=== PATIENT | female | born 1975 | race Caucasian/White ===

== ENCOUNTER 2022-10-20 11:24 | Outpatient (OUT) | payer OTHER, SELFPAY ==
[2022-10-20 11:53] LABS: Basophils Absolute Auto 0.1 10^3/uL (0.0-0.1); Basophils Percent Auto 1.1 % (0.2-2.0); Eosinophils Absolute Auto 0.2 10^3/uL (0.0-0.7); Eosinophils Percent Auto 3.5 % (0.9-7.0); Hematocrit 37.7 % (36.0-48.0); Hemoglobin 12.4 g/dL (12.0-16.0); Immature Granulocytes Abs Auto 0.01 10^3/uL (0.00-0.03); Immature Granulocytes Pct Auto 0.2 % (0.0-0.5); Lymphocytes Absolute Auto 2.4 10^3/uL (1.2-3.8); Lymphocytes Percent Auto 35.7 % (20.5-60.0); Mean Corpuscular HGB Conc 32.9 g/dL (29.9-35.2); Mean Corpuscular Hemoglobin 29.4 pg (26.7-34.0); Mean Corpuscular Volume 89.3 fL (81.0-99.0); Mean Platelet Volume 10.5 fL (9.5-13.5); Monocytes Absolute Auto 0.6 10^3/uL (0.3-0.8); Monocytes Percent Auto 8.7 % (1.7-12.0); Neutrophils Absolute Auto 3.4 10^3/uL (1.4-6.5); Neutrophils Percent Auto 50.8 % (43.0-75.0); Platelet Count 308 10^3/uL (150-450); Red Blood Count 4.22 10^6/uL (4.20-5.40); Red Cell Distribution Width 12.6 % (11.0-15.0); White Blood Count 6.6 10^3/uL (4.0-11.0)
[2022-10-20 12:05] LABS: Estimated Average Glucose 100 mg/dL; Glycohemoglobin A1C 5.1 % (4.5-6.2)
[2022-10-20 12:40] LABS: Alanine Aminotransferase 18 U/L (14-59); Albumin Globulin Ratio 1.4; Albumin Level 4.1 g/dL (3.4-5.0); Alkaline Phosphatase 44 U/L (46-116); Anion Gap 8.2; Aspartate Amino Transferase 12 U/L (15-37); BUN Creatinine Ratio 12.9; Bilirubin Direct 0.1 mg/dL (0.0-0.2); Bilirubin Total 0.3 mg/dL (0.2-1.0); Carbon Dioxide 27.3 mmol/L (21.0-32.0); Chloride 99 mmol/L (98-107); Chol HDL Ratio 2.8; Cholesterol 193 mg/dL (<=200); Estimated GFR (African America >60 (>=60); Estimated GFR (Non-African Ame >60 (>=60); Glucose 82 mg/dL (74-106); HDL Cholesterol 70 mg/dL (40-60); Potassium 3.5 mmol/L (3.5-5.1); Sodium 131 mmol/L (136-145); Thyroid Stimulating Hormone 1.681 uIU/mL (0.358-3.740); Total Protein 7.1 g/dL (6.4-8.2); Triglycerides 63 mg/dL (<=150); VLDL CHOLESTEROL 12.6 mg/dL
== END 2022-10-20 11:25 | disposition home or self-care (01) ==
LOC: LAB 11:26
PROVIDERS: PCP Family Medicine; Visit Provider Family Medicine
DX: Z00.00 Encounter for general adult medical examination without abnormal findings (principal)
CPT/HCPCS: 36415; 80048; 80061; 80076; 83036; 84443; 85025

== ENCOUNTER 2023-11-18 17:01 | Emergency (ER) | payer OTHER, SELFPAY ==
[2023-11-18 17:05] VITALS: BP 137/104; PULSE 100; TEMP 36.8; O2SAT 98; BMI 22.4
[2023-11-18] MEDS: OXYCODONE HCL/ACETAMINOPHEN 5MG/325MG 1 TAB PO (17:32)
[2023-11-18] MEDS: IBUPROFEN 600 MG TABLET PO (17:32)
--- NOTE | 2023-11-18 17:51 | XR_ITS ---
The [address] [address] Patient Name: FREDI MONAE MRN: [id number] date: 1975 Sex: F Assigned Patient Location: ED.MAIN Current Patient Location: Accession/Order Number: [id number] Exam Date: 11/18/2023 17:44 Report Date: 11/18/2023 19:06 At the request of: ALONSO YAP Procedure: XR finger RT min 2V EXAM: PLAIN FILM OF FINGER RIGHT HISTORY: Trauma TECHNIQUE: 3 views of the right finger fifth digit are submitted for review. COMPARISON: None. FINDINGS: There is a fracture of the distal tuft of the distal phalanx of the fifth digit right hand. Bone mineralization is within normal limits. Joint spaces are maintained. Tissues are diffusely edematous. There appears to be a laceration of the soft tissues. There is no radiopaque foreign body. XR/XR finger RT min 2V IMPRESSION: Displaced fracture of the distal tuft of the distal phalanx of the fifth digit right hand. Electronically authenticated by: AMANDA ANNA Date: 11/18/2023 19:06
[2023-11-18] MEDS: BUPIVACAINE HCL 0.25% PF 25 MG/10 ML VIAL INJ (18:21)
[2023-11-18] MEDS: CEPHALEXIN 500 MG CAPSULE PO (18:38)
[2023-11-18] MEDS: BACITRACIN 0.9 GM PACKET 1 PACKET TOPICAL (18:53)
--- NOTE | 2023-11-18 19:22 | ED.WOUNDLAC1 ---
HPI - Wound/Laceration General Chief Complaint: Wound/Laceration Stated Complaint: Upper Extremity Injury Time Seen by Provider: 11/18/23 17:05 Source: patient and family Mode of arrival: walk-in Limitations: no limitations History of Present Illness HPI narrative: 48-year-old female presents to the emergency department with children with complaint of injury to her right little finger. Patient states she accidentally got her finger crushed in between slants of a garage door. Wound noted. Notes some numbness to the tip of her finger. Range of motion somewhat reduced due to the pain. Patient is right-handed. Tetanus up-to-date. Quality:?Pressure, penetrating injury Severity:?Moderate Timing:?Injury occurred shortly prior to arrival, constant Context: Normal setting and activity? Modifying factors:?Pain worse with palpation, movement Associated symptoms: Swelling, bruising Related Data Previous Rx's ?Medication ?Instructions ?Recorded cephalexin 500 mg tablet 500 mg PO Q6H 3 days #12 tabs 11/18/23 ibuprofen 600 mg tablet 600 mg PO Q8H PRN pain #20 tabs 11/18/23 oxycodone-acetaminophen 5 mg-325 1 tab PO Q8H PRN pain 3 days #8 11/18/23 mg tablet (Percocet) tabs Allergies Allergy/AdvReac Type Severity Reaction Status Date / Time No Known Drug Allergies Allergy Verified 11/18/23 17:08 Review of Systems ROS Constitutional Denies: fatigue Musculoskeletal Reports: extremity pain, extremity swelling, joint pain and limited range of motion Integumentary/Breast Reports: skin pain, skin tenderness, changes in skin color, nail changes and other (wound) Neurological Reports: numbness in extremities (finger tip); Denies: weakness in extremities Endocrine Denies: fatigue Exam Constitutional Vital Signs, click to edit/add: Last Vital Signs Temp 98.2 F 11/18/23 17:05 Pulse 100 H 11/18/23 17:05 Resp 22 H 11/18/23 17:05 BP 137/104 H 11/18/23 17:05 Pulse Ox 98 11/18/23 17:05 O2 Del Method Room Air 11/18/23 17:05 Common normals: no apparent distress, oriented x3 and alert General appearance: well developed HENMT Common normals: normocephalic and head/scalp atraumatic Head and scalp: normocephalic and atraumatic Cardio Peripheral pulses: radial pulses present right 2+ Extremity Other: MS: Right little finger: Patient has 2.3 laceration overlying the DIP joint, volar aspect. There is diffuse tenderness, bruising, swelling throughout the finger. There is a subungual hematoma at the base of her nail. Range of motion is reduced at the DP due to the injury. She is able to fully flex the finger at the DIP joint and then fully extend it. She reports some decrease sensation to the tip of the finger Neuro Common normals: oriented x3 Sensorium/orientation: alert Sensory exam: extremities (Crease sensation to the tip of her finger) Motor exam: movement abnormality noted (DIP joint of her right little finger) Psych Common normals: mental status grossly normal, affect normal and speech normal Speech: normal speech Course Reevaluation(s) Reevaluation #1: On reevaluation, patient is pain-free. Wound has been repaired. Discussed with patient and family results, plan, and disposition. Appointment scheduled for Wednesday at 10:[address] Neely. They are agreeable with plan Time: 18:33 Vital Signs Vital signs: Vital Signs Temperature 98.2 F 11/18/23 17:05 Pulse Rate 100 H 11/18/23 17:05 Respiratory Rate 22 H 11/18/23 17:05 Blood Pressure 137/104 H 11/18/23 17:05 Pulse Oximetry 98 11/18/23 17:05 Oxygen Delivery Method Room Air 11/18/23 17:05 Temperature 98.2 F 11/18/23 17:05 Pulse Rate 100 H 11/18/23 17:05 Respiratory Rate 22 H 11/18/23 17:05 Blood Pressure 137/104 H 11/18/23 17:05 Pulse Oximetry 98 11/18/23 17:05 Oxygen Delivery Method Room Air 11/18/23 17:05 MDM - Wound/Laceration MDM Narrative Medical decision making narrative: This is a pleasant 48-year-old female who presents to the emergency department with complaint of injuring her right little finger when she crushed it in between slats of a garage door. On arrival, afebrile, vital signs are stable. Exam, nontoxic, uncomfortable appearing patient. She has discoloration, swelling, laceration to the right fifth digit. Range of motion is somewhat limited due to pain and swelling at the DIP joint. She is able to completely flex and extend the finger at her wits. PIP joint. Pharmacy. There is some decrease sensation to the tip of the finger and diffuse bruising is noted. She also has subungual hematoma X-ray imaging obtained which Radiology report reveals distal tuft fracture Finger anesthetized using digital block Wound repaired as noted in procedure note above She was given prophylactic antibiotics due to open fracture Visualization of flexor tendon made. No disruption noted during passive range of motion. Consider tuft fracture injury inhibiting her ability to flex at DIP Bulky dressing, splint applied. Appointment made for patient on Wednesday at 1015 with orthopedics History and record review Discussion with independent historian: Patient's children Additional records reviewed: [facility] reviewed. Patient states her tetanus is up-to-date Favor open distal tuft fracture right little finger, laceration right little finger, subungual hematoma, crush injury Dislocation less likely based on imaging Independent interpretation Imaging: Right little finger: Distal, disrupted fracture of the right little finger Reevaluation: See ED course above Disposition ? The patient was discharged. Plan: Patient will be discharged to home. Condition at time of disposition: stable She was given prescription for prophylactic Keflex, Motrin, limited supply of Percocet Advised to follow up with primary provider. Advised to return for any worsening and/or development of new, concerning signs or symptoms PLEASE NOTE: Portions of the medical record may have been produced using electronic wire spring relay adjuster and may contain errors with respect to translation of words which may not have been identified prior to finalization of the chart. Imaging Data right little finger: Radiologist's impression: ITS Impressions Finger X-Ray 11/18/23 17:51 IMPRESSION: Displaced fracture of the distal tuft of the distal phalanx of the fifth digit right hand. Electronically authenticated by: AMANDA ANNA Date: 11/18/2023 19:06 Discharge Plan Discharge Stand Alone Forms: Work/School Release Chief Complaint: Wound/Laceration Clinical Impression: Subungual hematoma Crush injury to finger Qualifiers: Encounter type: initial encounter Qualified Code(s): S67.10XA - Crushing injury of unspecified finger(s), initial encounter Laceration of right little finger Qualifiers: Encounter type: initial encounter Damage to nail status: with damage Foreign body presence: without foreign body Qualified Code(s): S61.316A - Laceration without foreign body of right little finger with damage to nail, initial encounter Open finger fracture Qualifiers: Encounter type: initial encounter Finger: little finger Phalanx: distal Fracture alignment: displaced Laterality: right Qualified Code(s): S62.636B - Displaced fracture of distal phalanx of right little finger, initial encounter for open fracture Patient Disposition: Home, Self-Care Time of Disposition Decision: 18:33 Condition: Good Mode of Transportation: Private Vehicle Prescriptions / Home Meds: New cephalexin 500 mg tablet 500 mg PO Q6H 3 Days Qty: 12 0RF oxycodone-acetaminophen [Percocet] 5-325 mg tablet 1 tab PO Q8H PRN (Reason: pain) 3 Days Qty: 8 0RF ibuprofen 600 mg tablet 600 mg PO Q8H PRN (Reason: pain) Qty: 20 0RF Print Language: Luxembourgish Instructions: Finger Fracture (ED), Crush Injury (ED) Additional Instructions: Laceration, Sutures ? You have been treated for a laceration (cut). ? Follow up with your doctor OR come back here OR go to the nearest Emergency Department to have your sutures (stitches) taken out. Sutures should be taken out in: 7-10 days. ? Use the following wound care instructions: Keep the wound clean and dry for the next 24 hours. You can wash the wound gently with soap and water. DO NOT allow your wound to soak in water (don?t do the dishes or go swimming, for example). You can shower, but do not rub your stitches too hard. Let the wound dry before putting another bandage on. Take off old dressings every day. Then put on a clean, dry dressing. If the bandage sticks to the wound, slightly moisten it with water. This way, it can come off more easily. You can wash the wound gently with soap and water. To help remove a scab, cleanse the area with a mixture of half hydrogen peroxide and half water. This will also help us to take out the sutures later. Allow the area to dry completely before putting on a new bandage. Unless you receive instructions not to do so, you can place a thin layer of antibiotic ointment over the wound. You can buy Polysporin?, Bacitracin?, or Neosporin? at the store. Neosporin? can sometimes cause irritation to your skin. If this happens, stop using it and switch to another topical (surface) antibiotic. If needed, put a clean, dry bandage over the wound to protect it. ? Keep the affected area elevated (lifted) for the next 24 hours. This will decrease swelling and pain. You may also want to put ice on the area. By applying ice to the affected area, swelling and pain can be reduced. Place some ice cubes in a re-sealable (Ziploc?) bag and add some water. Put a thin washcloth between the bag and the skin. Apply the ice bag to the area for at least 20 minutes. Do this at least 4 times per day. It is OK to use the ice more frequently and for longer periods of time. DO NOT APPLY ICE DIRECTLY TO THE SKIN! ? If you had a local anesthetic, it will wear off in about 2 hours. Until then, be careful not to hurt yourself because of having less feeling in the area. ? YOU SHOULD SEEK MEDICAL ATTENTION IMMEDIATELY, EITHER HERE OR AT THE NEAREST EMERGENCY DEPARTMENT, IF ANY OF THE FOLLOWING OCCURS: You see redness or swelling. There are red streaks going up from the injured area. The wound smells bad or has a lot of drainage. You have fever (temperature higher than 100.4?F / 38?C), chills, worse pain and / or swelling. ? ?BE SURE TO: Call the Doctor today (or tomorrow AM) for appointment. Call us or return for any questions\problems. Return to Emergency at anytime if you are worse. Have your prescription(s) filled right now. WOUND CARE: Have your sutures removed in 7-10 days. Keep wound clean, dry, and covered. Use peroxide once a day to help remove build up. Vitamin A&D ointment or Vitamin E lotion after sutures are removed.? Massage in. Referrals: Faustino Neely MD [Physician] - 11/22/23 10:15 am Discharge Date/Time: 11/18/23 19:02 Procedures ED Laceration Laceration Laceration 1: Site: hand (right little finger) Side (if applicable): right Size (cm): 2.3 Description: linear Depth: simple, single layer Anesthetic used: bupivacaine Anesthesia technique: nerve block Amount (ml): 4 Pre-repair: wound explored, irrigated extensively and deep structures intact (Flexor tendon was visualized. No disruption was noted with flexion and extension of the digit) Skin layer closed with: other (prolene) Size (cm): 6-0 Number of sutures: 8 Technique: simple, interrupted Additional comments: Saw bungalow hematoma released with trephination using a large gauge needle at the base of her nail
== END 2023-11-18 19:02 | disposition home or self-care (01) ==
PROVIDERS: Emergency Provider Emergency Medicine; PCP Family Medicine
DX: S67.196A Crushing injury of right little finger, initial encounter (principal); S62.636B Displaced fracture of distal phalanx of right little finger, initial encounter for open fracture; S60.151A Contusion of right little finger with damage to nail, initial encounter; W23.0XXA Caught, crushed, jammed, or pinched between moving objects, initial encounter
CPT/HCPCS: 12001; 73140; 99284; J0665

== ENCOUNTER 2023-11-22 12:32 | Outpatient (OUT) | payer OTHER, SELFPAY ==
[2023-11-22 14:04] LABS: Estimated Average Glucose 97 mg/dL
[2023-11-22 14:12] LABS: Basophils Absolute Auto 0.1 10^3/uL (0.0-0.1); Eosinophils Absolute Auto 0.4 10^3/uL (0.0-0.7); Hematocrit 40.6 % (36.0-48.0); Hemoglobin 13.5 g/dL (12.0-16.0); Immature Granulocytes Abs Auto 0.02 10^3/uL (0.00-0.03); Immature Granulocytes Pct Auto 0.3 % (0.0-0.5); Lymphocytes Absolute Auto 2.1 10^3/uL (1.2-3.8); Lymphocytes Percent Auto 26.5 % (20.5-60.0); Mean Corpuscular HGB Conc 33.3 g/dL (29.9-35.2); Mean Corpuscular Volume 93.1 fL (81.0-99.0); Mean Platelet Volume 11.6 fL (9.5-13.5); Monocytes Absolute Auto 0.5 10^3/uL (0.3-0.8); Monocytes Percent Auto 6.3 % (1.7-12.0); Neutrophils Absolute Auto 4.8 10^3/uL (1.4-6.5); Neutrophils Percent Auto 60.9 % (43.0-75.0); Platelet Count 302 10^3/uL (150-450); Red Blood Count 4.36 10^6/uL (4.20-5.40); Red Cell Distribution Width 12.2 % (11.0-15.0); White Blood Count 7.8 10^3/uL (4.0-11.0)
[2023-11-22 14:55] LABS: Alanine Aminotransferase 15 U/L (14-59); Albumin Globulin Ratio 1.4; Alkaline Phosphatase 43 U/L (46-116); Anion Gap 8.2; Aspartate Amino Transferase 10 U/L (15-37); BUN Creatinine Ratio 12.1; Bilirubin Direct 0.1 mg/dL (0.0-0.2); Bilirubin Total 0.3 mg/dL (0.2-1.0); Calcium 9.1 mg/dL (8.5-10.1); Carbon Dioxide 31.6 mmol/L (21.0-32.0); Chloride 101 mmol/L (98-107); Chol HDL Ratio 3.1; Cholesterol 185 mg/dL (<=200); Estimated GFR (African America >60 (>=60); Estimated GFR (Non-African Ame >60 (>=60); Globulin 2.9 g/dL; Glucose 89 mg/dL (74-106); HDL Cholesterol 60 mg/dL (40-60); LDL Cholesterol Calculated 102.8 mg/dL; Potassium 3.8 mmol/L (3.5-5.1); Sodium 137 mmol/L (136-145); TSH W/ REFLEX FT4 0.633 uIU/mL (0.358-3.740); Total Protein 6.9 g/dL (6.4-8.2); Triglycerides 111 mg/dL (<=150); VLDL CHOLESTEROL 22.2 mg/dL
== END 2023-11-22 12:33 | disposition home or self-care (01) ==
LOC: LAB 12:33
PROVIDERS: PCP Family Medicine; Visit Provider Family Medicine
DX: Z00.00 Encounter for general adult medical examination without abnormal findings (principal)
CPT/HCPCS: 36415; 80048; 80061; 80076; 83036; 84443; 85025

== ENCOUNTER 2023-11-29 11:11 | Outpatient (OUT) | payer OTHER, SELFPAY ==
--- NOTE | 2023-11-29 | XR_ITS ---
The [address] [address] Patient Name: FREDI MONAE MRN: [id number] date: 1975 Sex: F Assigned Patient Location: Current Patient Location: Accession/Order Number: [id number] Exam Date: 11/29/2023 11:20 Report Date: 12/01/2023 13:05 At the request of: ANA JASSO Procedure: XR hand RT min 3V PROCEDURE: XR hand RT min 3V COMPARISON: 11/18/2023 HISTORY: RIGHT HAND PAIN FINDINGS: BONES:Complex displaced fracture tuft of the fifth distal phalanx, stable. No significant bone formation or bony bridging SOFT TISSUES:Soft tissue swelling tip of the fifth finger EFFUSION:None visible. OTHER: Negative. XR/XR hand RT min 3V IMPRESSION: Stable complex fracture tuft of the fifth distal phalanx Electronically authenticated by: JUAN MANUEL GILBERT Date: 12/01/2023 13:05
--- OUTSIDE RECORDS SUMMARY | 2023-11-29 11:17 | XMS_ITS | CCD ---
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 throughout, improved since last visit. Darker hairs noted at vertex ASSESSMENT and PLAN: Alopecia areata, totalis, rapid, improving - Improved s/p 6 weeks of prednisone followed by weekly prednisone 60 x 6 weeks. Stop prednisone today - We offered treatment with repeat intralesional triamcinolone injection today, to which the patient was agreeable. The risks, benefits, indications, alternatives, and complications were discussed, and informed consent was obtained. Specifically, the risks of possible permanent atrophy or pigment change and infection were explained and understood. We cleaned the site(s) with alcohol and injected Kenalog 5 mg/mL The patient tolerated the procedure well without complications. - Recommend that the patient consider a trial of at least six months of minoxidil 5% topical solution/foam twice daily. - Continue lidex ointment twice daily Wednesday through Wednesday. The potential adverse effects associated with long-term use of topical corticosteroids, including atrophy, hypopigmentation, striae, and telangiectasia, were reviewed. - Continue OTC vitamin D, 2000 IU daily - Continue iron supplementation, slow Fe daily. Can recheck levels as follow up if needed. - In reserve, contact sensitization vs tofacinib FOLLOW-UP: A return visit was recommended in October with Dr. Barbosa. -- Loy Restrepo MD Referring Provider: SELF [[id number]] Allergies As of Date: 09/12/2018 Noted Allergy Reaction SEASONAL ALLERGIES 06/06/2018 14 - Other: See Comments Comments: rhinitis Date Reviewed: 09/12/2018 Reviewed by: Pattie Arguello Ma - Fully Assessed Reason for Visit: Hair Loss [933] Primary Visit Diagnosis:Alopecia areata [L63.9] Order(s):[] triamcinolone acetonide 5 mg injection (KENALOG 10)Disp: Rfl: Prescriptions as of 09/12/2018 Sig: PREDNISONE 20 MG TABLET Take 3 tablets (60 mg) every * TOPIRAMATE 25 MG TABLET Take 25 mg by mouth twice radha* SUMATRIPTAN 100 MG TABLET Take 100 mg by mouth as neede* BUTALBITAL-ACETAMINOP HEN-CAFF* Take 1 tablet by mouth every * IBUPROFEN 800 MG TABLET Take 800 mg by mouth every 6 * FLUOCINONIDE 0.05 % TOPICAL O* Apply to affected area twice * CHOLECALCIFEROL (VITAMIN D3) * Take 1 capsule by mouth once * Patient not taking: Reported on 08/01/2018 PREDNISONE 10 MG TABLET 60mg daily x 7 days, [id number],* Patient not taking: Reported on 08/01/2018 Problem List As Of Date: 09/12/2018 (None) Prescriptions ordered this encounter Disp Refills Start End TRIAMCINOLONE ACETONIDE 10 MG/ML KAMERON* 09/12/2018 09/12/2018 Route: INTRALESIONA Encounter Status:Closed by JHOANA CONNOR RN on 09/12/18 Normal [facility] PROGRESSon 09-12-2018 PROGRESS HNO ID: [id number] Author: Loy Restrepo Service: ? Author Type: Physician Type: Progress Notes Filed: 09/12/2018 4:09 PM Note Text: [facility] Department of Dermatology CHIEF COMPLAINT: No chief complaint on file. HISTORY OF PRESENT ILLNESS: Chloe Cary is a 43 year old female with history of AA who presents for follow-up. She was last seen in our [facility] on 08/01/18. At the last visit, the impression and the plan were: Alopecia areata, totalis, rapid, improving - Improved s/p 6 weeks of prednisone. Recommend continuing a few more weeks of 60 mg weekly until follow up. Side effects reviewed - ILK 5 mg/mL to entire scalp - Recommend starting rogaine 5% - Continue lidex ointment nightly. - Next steps: continue ILK. Decrease prednisone. - Continue OTC vitamin D, 2000 IU daily - Start iron supplementation, slow Fe daily - In reserve, contact sensitization vs tofacinib Today, the patient reports that her hair loss is better. White hair regrowth throughout. Still on prednisone weekly. Plan for ILK today. Still using lidex M-F. On Vitamin D and slow Fe. REVIEW OF SYSTEMS: Fourteen systems were reviewed; pertinent findings are described below. All other systems are negative for the problems addressed today. Integument: No other itching, bleeding, or changing skin lesions currently. ALLERGIES: Allergies As of Date: 09/12/2018 Allergen Noted Reaction SEASONAL ALLERGIES 06/06/2018 Other: See Comments Fully Assessed 08/01/2018 MEDICATIONS: Outpatient Medications Marked as Taking for the 08/01/18 encounter (Office Visit) with Loy Restrepo: topiramate (TOPAMAX) 25 mg tablet Take 25 mg by mouth twice daily. Disp: Rfl: SUMAtriptan (IMITREX) 100 mg tablet Take 100 mg by mouth as needed. Disp: Rfl: ibuprofen (MOTRIN) 800 mg tablet Take 800 mg by mouth every 6 hours as needed. Disp: Rfl: fluocinonide (LIDEX) 0.05 % ointment Apply to affected area twice daily Wednesday-Wednesday. Take weekends off. Disp: 60 g Rfl: 3 RELEVANT PAST MEDICAL HISTORY: No past medical history on file. FAMILY HISTORY: No family history on file. SOCIAL HISTORY: *Above past medical, family and social history reviewed; no changes. PHYSICAL EXAMINATION: Constitutional: Patient is well-appearing and in no acute distress. Pleasant, NAD Skin: Exam of the scalp, face and neck is performed. All areas are normal except for the following findings. - diffuse white fine hairs throughout, improved since last visit. Darker hairs noted at vertex ASSESSMENT and PLAN: Alopecia areata, totalis, rapid, improving - Improved s/p 6 weeks of prednisone followed by weekly prednisone 60 x 6 weeks. Stop prednisone today - We offered treatment with repeat intralesional triamcinolone injection today, to which the patient was agreeable. The risks, benefits, indications, alternatives, and complications were discussed, and informed consent was obtained. Specifically, the risks of possible permanent atrophy or pigment change and infection were explained and understood. We cleaned the site(s) with alcohol and injected Kenalog 5 mg/mL The patient tolerated the procedure well without complications. - Recommend that the patient consider a trial of at least six months of minoxidil 5% topical solution/foam twice daily. - Continue lidex ointment twice daily Wednesday through Wednesday. The potential adverse effects associated with long-term use of topical corticosteroids, including atrophy, hypopigmentation, striae, and telangiectasia, were reviewed. - Continue OTC vitamin D, 2000 IU daily - Continue iron supplementation, slow Fe daily. Can recheck levels as follow up if needed. - In reserve, contact sensitization vs tofacinib FOLLOW-UP: A return visit was recommended in October with Dr. Barbosa. -- Loy Restrepo MD [facility] CNOVon 08-01-2018 CNOV Office Visit (DERMBD ) CHLOE CARY ([id number]) 1975 F Date Time Provider Department 08/01/18 2:00 PM LOY RESTREPO DERMBD During your visit today, we recorded the following information about you: Loy Restrepo MD 08/01/2018 4:36 PM Signed [facility] Department of Dermatology CHIEF COMPLAINT: Patient presents with: Hair Loss HISTORY OF PRESENT ILLNESS: Chloe Cary is a 43 year old female with history of AA who presents for follow-up. She was last seen in our [facility] on 06/06/2018. At the last visit, the impression and the plan were: Alopecia areata, diffuse pattern, worsening - Recommend that the patient consider a trial of at least six months of minoxidil 5% topical solution/foam twice daily. - Prescribed fluocinonide (Lidex) 0.05% ointment for the scalp twice daily two weeks on/two weeks off. - Prescribed prednisone taper as follows: 60 mg daily x 7 days, then 50 mg daily x 7 days, then 40 mg daily x 7 days, then 30 mg daily x 7 days, then 20 mg daily x 7 days, then 10 mg daily x 7 days, and then stop. Blood work demonstrated iron and vitamin D as slightly low. Started slow Fe daily and vitamin D 50,000 IU for 6 weeks. Today, the patient reports that her hair loss is better. Previous therapies for the above problem also include: - ILK - topical steroids - course of oral prednisone REVIEW OF SYSTEMS: Fourteen systems were reviewed; pertinent findings are described below. All other systems are negative for the problems addressed today. Integument: No other itching, bleeding, or changing skin lesions currently. ALLERGIES: Allergies As of Date: 08/01/2018 Allergen Noted Reaction SEASONAL ALLERGIES 06/06/2018 Other: See Comments Fully Assessed 08/01/2018 MEDICATIONS: Outpatient Medications Marked as Taking for the 08/01/18 encounter (Office Visit) with Loy Restrepo: topiramate (TOPAMAX) 25 mg tablet Take 25 mg by mouth twice daily. Disp: Rfl: SUMAtriptan (IMITREX) 100 mg tablet Take 100 mg by mouth as needed. Disp: Rfl: ibuprofen (MOTRIN) 800 mg tablet Take 800 mg by mouth every 6 hours as needed. Disp: Rfl: fluocinonide (LIDEX) 0.05 % ointment Apply to affected area twice daily Wednesday-Wednesday. Take weekends off. Disp: 60 g Rfl: 3 RELEVANT PAST MEDICAL HISTORY: No past medical history on file. FAMILY HISTORY: No family history on file. SOCIAL HISTORY: *Above past medical, family and social history reviewed; no changes. PHYSICAL EXAMINATION: Constitutional: Patient is well-appearing and in no acute distress. Conjunctivae and eyelids: Normal, except as noted below. Lips: Normal, except as noted below. Skin: Exam of the scalp, face and neck is performed. All areas are normal except for the following findings. - diffuse white fine hairs throughout. Patches of darker hairs in the vertex and occipital scalp, improved ASSESSMENT and PLAN: Alopecia areata, totalis, rapid, improving - Improved s/p 6 weeks of prednisone. Recommend continuing a few more weeks of 60 mg weekly until follow up. Side effects reviewed - We offered treatment with intralesional triamcinolone injection today, to which the patient was agreeable. The risks, benefits, indications, alternatives, and complications were discussed, and informed consent was obtained. Specifically, the risks of possible permanent atrophy or pigment change and infection were explained and understood. We cleaned the site(s) with alcohol and injected Kenalog 5 mg/mL The patient tolerated the procedure well without complications. - Recommend that the patient consider a trial of at least six months of minoxidil 5% topical solution/foam twice daily. We discussed that she may initially notice hair loss with initiation of this medication. We also recommended that she taper the medication should she choose to discontinue it. - Continue lidex ointment nightly. The potential adverse effects associated with long-term use of topical corticosteroids, including atrophy, hypopigmentation, striae, and telangiectasia, were reviewed. - Next steps: continue ILK. Decrease prednisone. - Continue OTC vitamin D, 2000 IU daily - Start iron supplementation, slow Fe daily - In reserve, contact sensitization vs tofacinib FOLLOW-UP: A return visit was recommended in August. COMPLIANCE DOCUMENTATION: - Medication Reconciliation: An updated list was offered to the patient. This list is available in the electronic medical record. -- MD Loy Chaney MD 08/01/2018 2:34 PM Signed Plan: - slow Fe daily - vitamin D 2,000 IU daily - continue lidex ointment once daily - restart prednisone 60 mg weekly, Mondays. - injections today F/u in August - with me. Then f/u in October with Dr. Barbosa Referring Provider: SELF [200] Allergies As of Date: 08/01/2018 Noted Allergy Reaction SEASONAL ALLERGIES 06/06/2018 14 - Other: See Comments Comments: rhinitis Date Reviewed: 08/01/2018 Reviewed by: Pattie Arguello Ma - Fully Assessed Reason for Visit: Hair Loss [933] Primary Visit Diagnosis:Alopecia areata [L63.9] Order(s):[] triamcinolone acetonide 5 mg injection (KENALOG 10)Disp: Rfl: predniSONE (DELTASONE) 20 mg tabletTake 3 tablets (60 mg) every Wednesday.Disp: 12 tabletRfl: 2 Prescriptions as of 08/01/2018 Sig: TOPIRAMATE 25 MG TABLET Take 25 mg by mouth twice radha* SUMATRIPTAN 100 MG TABLET Take 100 mg by mouth as neede* IBUPROFEN 800 MG TABLET Take 800 mg by mouth every 6 * FLUOCINONIDE 0.05 % TOPICAL O* Apply to affected area twice * PREDNISONE 20 MG TABLET Take 3 tablets (60 mg) every * CHOLECALCIFEROL (VITAMIN D3) * Take 1 capsule by mouth once * Patient not taking: Reported on 08/01/2018 BUTALBITAL-ACETAMINOP HEN-CAFF* Take 1 tablet by mouth every * PREDNISONE 10 MG TABLET 60mg daily x 7 days, [id number],* Patient not taking: Reported on 08/01/2018 Problem List As Of Date: 08/01/2018 (None) Other instructions from your clinician: Plan: - slow Fe daily - vitamin D 2,000 IU daily - continue lidex ointment once daily - restart prednisone 60 mg weekly, Mondays. - injections today F/u in August - with mn. Then f/u in October with Dr. Barbosa Prescriptions ordered this encounter Disp Refills Start End TRIAMCINOLONE ACETONIDE 10 MG/ML KAMERON* 08/01/2018 08/01/2018 Route: INTRALESIONA PREDNISONE 20 MG TABLET 12 t* 2 08/01/2018 Sig: Take 3 tablets (60 mg) every Wednesday. Encounter Status:Closed by LOY RESTREPO on 08/01/18 Normal [facility] PROGRESSon 08-01-2018 PROGRESS HNO ID: [id number] Author: Loy Restrepo Service: ? Author Type: Physician Type: Progress Notes Filed: 08/01/2018 4:36 PM Note Text: [facility] Department of Dermatology CHIEF COMPLAINT: Patient presents with: Hair Loss HISTORY OF PRESENT ILLNESS: Chloe Cary is a 43 year old female with history of AA who presents for follow-up. She was last seen in our [facility] on 06/06/2018. At the last visit, the impression and the plan were: Alopecia areata, diffuse pattern, worsening - Recommend that the patient consider a trial of at least six months of minoxidil 5% topical solution/foam twice daily. - Prescribed fluocinonide (Lidex) 0.05% ointment for the scalp twice daily two weeks on/two weeks off. - Prescribed prednisone taper as follows: 60 mg daily x 7 days, then 50 mg daily x 7 days, then 40 mg daily x 7 days, then 30 mg daily x 7 days, then 20 mg daily x 7 days, then 10 mg daily x 7 days, and then stop. Blood work demonstrated iron and vitamin D as slightly low. Started slow Fe daily and vitamin D 50,000 IU for 6 weeks. Today, the patient reports that her hair loss is better. Previous therapies for the above problem also include: - ILK - topical steroids - course of oral prednisone REVIEW OF SYSTEMS: Fourteen systems were reviewed; pertinent findings are described below. All other systems are negative for the problems addressed today. Integument: No other itching, bleeding, or changing skin lesions currently. ALLERGIES: Allergies As of Date: 08/01/2018 Allergen Noted Reaction SEASONAL ALLERGIES 06/06/2018 Other: See Comments Fully Assessed 08/01/2018 MEDICATIONS: Outpatient Medications Marked as Taking for the 08/01/18 encounter (Office Visit) with Loy Restrepo: topiramate (TOPAMAX) 25 mg tablet Take 25 mg by mouth twice daily. Disp: Rfl: SUMAtriptan (IMITREX) 100 mg tablet Take 100 mg by mouth as needed. Disp: Rfl: ibuprofen (MOTRIN) 800 mg tablet Take 800 mg by mouth every 6 hours as needed. Disp: Rfl: fluocinonide (LIDEX) 0.05 % ointment Apply to affected area twice daily Wednesday-Wednesday. Take weekends off. Disp: 60 g Rfl: 3 RELEVANT PAST MEDICAL HISTORY: No past medical history on file. FAMILY HISTORY: No family history on file. SOCIAL HISTORY: *Above past medical, family and social history reviewed; no changes. PHYSICAL EXAMINATION: Constitutional: Patient is well-appearing and in no acute distress. Conjunctivae and eyelids: Normal, except as noted below. Lips: Normal, except as noted below. Skin: Exam of the scalp, face and neck is performed. All areas are normal except for the following findings. - diffuse white fine hairs throughout. Patches of darker hairs in the vertex and occipital scalp, improved ASSESSMENT and PLAN: Alopecia areata, totalis, rapid, improving - Improved s/p 6 weeks of prednisone. Recommend continuing a few more weeks of 60 mg weekly until follow up. Side effects reviewed - We offered treatment with intralesional triamcinolone injection today, to which the patient was agreeable. The risks, benefits, indications, alternatives, and complications were discussed, and informed consent was obtained. Specifically, the risks of possible permanent atrophy or pigment change and infection were explained and understood. We cleaned the site(s) with alcohol and injected Kenalog 5 mg/mL The patient tolerated the procedure well without complications. - Recommend that the patient consider a trial of at least six months of minoxidil 5% topical solution/foam twice daily. We discussed that she may initially notice hair loss with initiation of this medication. We also recommended that she taper the medication should she choose to discontinue it. - Continue lidex ointment nightly. The potential adverse effects associated with long-term use of topical corticosteroids, including atrophy, hypopigmentation, striae, and telangiectasia, were reviewed. - Next steps: continue ILK. Decrease prednisone. - Continue OTC vitamin D, 2000 IU daily - Start iron supplementation, slow Fe daily - In reserve, contact sensitization vs tofacinib FOLLOW-UP: A return visit was recommended in August. COMPLIANCE DOCUMENTATION: - Medication Reconciliation: An updated list was offered to the patient. This list is available in the electronic medical record. -- Loy Restrepo MD Normal [facility] CBC and Differentialon 06-06 Abs Baso 0.10 k/uL Normal <0.11 [facility] Comment on above: Performed By: #### [employer], TSH, CBCDIF, CMP, FERR #### [facility] [address] [place], [place] [address] Abs Osborne 0.57 k/uL Normal <0.87 [facility] Comment on above: Performed By: #### Z INC, TSH, CBCDIF, CMP, FERR #### [facility] [address] [place], [place] [id number] Abs Neut 3.79 k/uL Normal 1.45-7.50 [facility] Comment on above: Performed By: #### [employer], TSH, CBCDIF, CMP, FERR #### [facility] [address] [place], [place] [address] Absolute nRBC <0.01 Normal <0.01 [facility] Comment on above: Performed By: #### [employer], TSH, CBCDIF, CMP, FERR #### [facility] [address] [place] [address] Basophils/100 WBC (Bld) 1.4 % Normal [facility] Comment on above: Performed By: #### [employer], TSH, CBCDIF, CMP, FERR #### [facility] [address] [place] [address] DTYPE Auto Diff Normal [facility] Comment on above: Performed By: #### [employer], TSH, CBCDIF, CMP, FERR #### [facility] [address] [place] [address] Eosinophils (Bld) [#/Vol] 0.24 10*3/uL Normal <0.46 [facility] Comment on above: Performed By: #### [employer], TSH, CBCDIF, CMP, FERR #### [facility] [address] [place] [address] Eosinophils/100 WBC (Bld) 3.4 % Normal [facility] Comment on above: Performed By: #### [employer], TSH, CBCDIF, CMP, FERR #### [facility] [address] [place] [address] Erythrocyte distribution width (RBC) [Ratio] 12.9 % Normal 11.5-15.0 [facility] Comment on above: Performed By: #### [employer], TSH, CBCDIF, CMP, FERR #### [facility] [address] [place] [address] Hematocrit (Bld) [Volume fraction] 44.5 % Normal 36.0-46.0 [facility] Comment on above: Performed By: #### [employer], TSH, CBCDIF, CMP, FERR #### [facility] [address] [place] [address] Hemoglobin (Bld) [Mass/Vol] 13.9 g/dL Normal 11.5-15.5 [facility] Comment on above: Performed By: #### [employer], TSH, CBCDIF, CMP, FERR #### [place] [address] [place], [place] [address] Lymphocytes (Bld) [#/Vol] 2.36 10*3/uL Normal 1.00-4.00 [facility] Comment on above: Performed By: #### Z [employer], TSH, CBCDIF, CMP, FERR #### [place] [address] [place], [place] [address] Lymphocytes/100 WBC (Bld) 33.3 % Normal [facility] Comment on above: Performed By: #### [employer], TSH, CBCDIF, CMP, FERR #### [address] [address] MCH (RBC) [Entitic mass] 29.4 pG Normal 26.0-34.0 [facility] Comment on above: Performed By: #### [employer], TSH, CBCDIF, CMP, FERR #### [address] [address] MCHC (RBC) [Mass/Vol] 31.2 g/dL Normal 30.5-36.0 [facility] Comment on above: Performed By: #### [employer], TSH, CBCDIF, CMP, FERR #### [place] [place], [place] [address] MCV (RBC) [Entitic vol] 94.1 fL Normal 80.0-100.0 [facility] Comment on above: Performed By: #### Z [employer], TSH, CBCDIF, CMP, FERR #### [place] [address] [place], [place] [address] Monocytes/100 WBC (Bld) 8.1 % Normal [facility] Comment on above: Performed By: #### Z INC, TSH, CBCDIF, CMP, FERR #### [place] [id number] [place] [address] Neutrophils/100 WBC (Bld) 53.8 % Normal [facility] Comment on above: Performed By: #### [employer], TSH, CBCDIF, CMP, FERR #### [place] [address] [place] [address] NRBCs 0.0 /100 WBC Normal 0 [facility] Comment on above: Performed By: #### [employer], TSH, CBCDIF, CMP, FERR #### [place] [id number] [place] [address] Platelet mean volume (Bld) [Entitic vol] 11.5 fL Normal 9.0-12.7 [facility] Comment on above: Performed By: #### [employer], TSH, CBCDIF, CMP, FERR #### [place] [address] Platelets (Bld) [#/Vol] 306 10*3/uL Normal 150-400 [facility] Comment on above: Performed By: #### [employer], TSH, CBCDIF, CMP, FERR #### [place] [address] RBC (Bld) [#/Vol] 4.73 10*6/uL Normal 3.90-5.20 [facility] Comment on above: Performed By: #### [employer], TSH, CBCDIF, CMP, FERR #### [place] [address] WBC (Bld) [#/Vol] 7.08 10*3/uL Normal 3.70-11.00 [facility] Comment on above: Performed By: #### [employer], TSH, CBCDIF, CMP, FERR #### [place] [address] [place] [address] CNOVon 06-06-2018 CNOV Office Visit (DERMBD ) CHLOE CARY ([id number]) 1975 F Date Time Provider Department 06/06/18 9:20 AM LOY RESTREPO During your visit today, we recorded the following information about you: Loy Restrepo MD 06/06/2018 12:50 PM Signed [facility] Department of Dermatology We had the pleasure of seeing your patient. Please see below for our findings, including our assessment and plan near the end of this letter. We hope you find our recommendations helpful. We appreciate the opportunity to consult on the care of your patient. CHIEF COMPLAINT: Patient presents with: Hair Loss HISTORY OF PRESENT ILLNESS: Chloe Cary is a 43 year old female with history of AA who presents for initial evaluation of diffuse hair loss detailed below. Location: scalp Duration: November, flaring most in April Associated symptoms: no itching Modifying factors: previous tx with ILK with improvement. She did leave her boyfriend in November which was a stressor. She did lose about 25 lbs in the last few months due to stress. She was on antidepressants in the past but no longer. Topamax was started about 1.5 years ago - only new medication. No family hx of alopecia. Never started on topical agents. No additional issues today The patient?s personal history of skin cancer is negative. There is not a family history of melanoma. REVIEW OF SYSTEMS: Fourteen systems were reviewed; pertinent findings are described below. All other systems are negative for the problems addressed today. Integument: No other itching, bleeding, or changing skin lesions currently. ALLERGIES: Allergies As of Date: 06/06/2018 Allergen Noted Reaction SEASONAL ALLERGIES 06/06/2018 Other: See Comments reviewed none MEDICATIONS: Outpatient Medications Marked as Taking for the 06/06/18 encounter (Office Visit) with Loy Restrepo: topiramate (TOPAMAX) 25 mg tablet Take 25 mg by mouth twice daily. Disp: Rfl: SUMAtriptan (IMITREX) 100 mg tablet Take 100 mg by mouth as needed. Disp: Rfl: acetaminophen 325 mg-caffeine 40 mg-butalbital 50 mg (FIORICET) per tablet Take 1 tablet by mouth every 4 hours as needed. Disp: Rfl: ibuprofen (MOTRIN) 800 mg tablet Take 800 mg by mouth every 6 hours as needed. Disp: Rfl: RELEVANT PAST MEDICAL HISTORY: No past medical history on file. FAMILY HISTORY: No family history on file. SOCIAL HISTORY: *Above past medical, family and social history reviewed; no changes. PHYSICAL EXAMINATION: Constitutional: Patient is well-appearing and in no acute distress. Conjunctivae and eyelids: Normal, except as noted below. Lips: Normal, except as noted below. Skin: Exam of the face, scalp and hands is performed. All areas are normal except for the following findings. - wig in place, removed for exam - diffuse significant thinning of the scalp. Few thin hairs presents throughout - normal density eyelashes and eyebrows ASSESSMENT and PLAN: Alopecia areata, diffuse pattern, worsening - We discussed the diagnosis, pathogenesis, and expected clinical course of alopecia areata and its variants, including the chronic and waxing/waning nature of this condition. We reviewed reviewed that alopecia areata and its variants are autoimmune diseases and have an unpredictable course. - We reviewed that alopecia areata may be associated with other autoimmune conditions (most commonly thyroid disease) in some patients and families. Labs today - Recommend that the patient consider a trial of at least six months of minoxidil 5% topical solution/foam twice daily. We discussed that she may initially notice hair loss with initiation of this medication. We also recommended that she taper the medication should she choose to discontinue it. - Prescribed fluocinonide (Lidex) 0.05% ointment for the scalp twice daily two weeks on/two weeks off. - The potential adverse effects associated with long-term use of topical corticosteroids, including atrophy, hypopigmentation, striae, and telangiectasia, were reviewed. - Prescribed prednisone taper as follows: 60 mg daily x 7 days, then 50 mg daily x 7 days, then 40 mg daily x 7 days, then 30 mg daily x 7 days, then 20 mg daily x 7 days, then 10 mg daily x 7 days, and then stop. Side effects of prednisone, including hypertension, skin atrophy and impaired wound healing, peripheral edema, nausea/vomiting, increased risk of gastric ulcerations and GI bleeding, increased risk of infection, hyperglycemia and risk of adrenal insufficiency with tapering, cataracts, glaucoma, insomnia, depression, anxiety, osteopenia/osteoporos is and risk of osteonecrosis of the hip, were reviewed with the patient. FOLLOW-UP: A return visit was recommended in 8 weeks. COMPLIANCE DOCUMENTATION: - Medication Reconciliation: An updated list was offered to the patient. This list is available in the electronic medical record. 30 minutes total visit spent face to face with patient. Greater than 50% of the time was spent on counseling and coordination of care, discussing treatment options and recommendations. -- Loy Restrepo MD Referring Provider: SELF [[id number]] Allergies As of Date: 06/06/2018 Noted Allergy Reaction SEASONAL ALLERGIES 06/06/2018 14 - Other: See Comments Comments: rhinitis Date Reviewed: Never Reviewed Reason for Visit: Hair Loss [933] Primary Visit Diagnosis:Alopecia areata [L63.9] Order(s):fluocinonide (LIDEX) 0.05 % ointmentApply to affected area twice daily Wednesday-Wednesday. Take weekends off.Disp: 60 gRfl: 3 CBC + DIFF [SQCBCDIF] Order #: [id number] FUTURE COMP METABOLIC PANEL [SQCMP] Order #: [id number] FUTURE TSH BLD [SQTSH] Order #: [id number] FUTURE VITAMIN D 25 HYDROXY [SQVITD] Order #: [id number]. #:[id number] FERRITIN BLD [SQFERR] Order #: [id number] FUTURE ZINC BLD [SQZINC] Order #: [id number] FUTURE predniSONE (DELTASONE) 10 mg [id number] daily x 7 days, 99ezw4g, 26oga3n, 30clp9k, 35hdt9t, 84gru6n, then stopDisp: 147 tabletRfl: 0 Prescriptions as of 06/06/2018 Sig: TOPIRAMATE 25 MG TABLET Take 25 mg by mouth twice radha* SUMATRIPTAN 100 MG TABLET Take 100 mg by mouth as neede* BUTALBITAL-ACETAMINOP HEN-CAFF* Take 1 tablet by mouth every * IBUPROFEN 800 MG TABLET Take 800 mg by mouth every 6 * FLUOCINONIDE 0.05 % TOPICAL O* Apply to affected area twice * PREDNISONE 10 MG TABLET 60mg daily x 7 days, 78psz6a,* Problem List As Of Date: 06/06/2018 (None) Prescriptions ordered this encounter Disp Refills Start End FLUOCINONIDE 0.05 % TOPICAL OINTMENT 60 g 3 06/06/2018 Sig: Apply to affected area twice daily Wednesday-Wednesday. Take weekends off. PREDNISONE 10 MG TABLET 147 * 0 06/06/2018 Simg daily x 7 days, 97uuf4m, 84lvy1c, 70eml4w, 13ebf8h, 25wrz3b, then stop Encounter Status:Closed by LOY RESTREPO on 06/06/18 Normal [facility] Comp Metabolic Panelon 06-06 Albumin [Mass/Vol] 4.8 g/dL Normal 3.9-4.9 [facility] Comment on above: Performed By: #### Z INC, TSH, CBCDIF, CMP, FERR #### [place] [address] [place] [address] ALP [Catalytic activity/Vol] 44 U/L Normal 34-123 [facility] Comment on above: Performed By: #### [employer], TSH, CBCDIF, CMP, FERR #### [facility] [address] [place] [address] ALT [Catalytic activity/Vol] 8 U/L Normal 7-38 [facility] Comment on above: Performed By: #### [employer], TSH, CBCDIF, CMP, FERR #### [facility] [address] [place], [place] [address] Anion gap [Moles/Vol] 9 mmol/L Normal 9-18 [facility] Comment on above: Performed By: #### [employer], TSH, CBCDIF, CMP, FERR #### [facility] [employer] [address] [place] [address] AST [Catalytic activity/Vol] 18 U/L Normal 13-35 [facility] Comment on above: Performed By: #### [employer], TSH, CBCDIF, CMP, FERR #### [facility] [employer] [address] [place], [place] [address] Bilirubin [Mass/Vol] 0.2 mg/dL Normal 0.2-1.3 [facility] Comment on above: Performed By: #### [employer] INC, TSH, CBCDIF, CMP, FERR #### [facility] [address] [place] [address] Calcium [Mass/Vol] 9.5 mg/dL Normal 8.5-10.2 [facility] Comment on above: Performed By: #### [employer], TSH, CBCDIF, CMP, FERR #### [place] [address] [place] [address] Chloride [Moles/Vol] 104 mmol/L Normal 97-105 [facility] Comment on above: Performed By: #### [employer], TSH, CBCDIF, CMP, FERR #### [place] [address] CO2 [Moles/Vol] 26 mmol/L Normal 22-30 [facility] Comment on above: Performed By: #### [employer], TSH, CBCDIF, CMP, FERR #### [place] [address] [place] [address] Creatinine [Mass/Vol] 0.75 mg/dL Normal 0.58-0.96 [facility] Comment on above: Performed By: #### Z [employer], TSH, CBCDIF, CMP, FERR #### [facility] [address] [place] [address] eGFR- Amer. >60 Normal [facility] Comment on above: Performed By: #### [employer], TSH, CBCDIF, CMP, FERR #### [place] [address] [place] [address] GFR/1.73 sq M predicted among non-blacks MDRD (S/P/Bld) [Vol rate/Area] mL/min/{1.73_m2} Normal [facility] Comment on above: Result Comment: eGFR (Estimated GFR) Units of measure: mL/min/1.73 meters squared eGFR is derived from the reexpressed MDRD Study equation using the following parameters: serum creatinine, age, gender and race. The creatinine assay has been calibrated to be traceable to IDMS. An eGFR <60 mL/min/1.73m2 for >3 months is consistent with chronic kidney disease. Refer to KDOQI guidelines for clinical interpretation. In patients with unstable renal function, e.g. those with acute kidney injury, the eGFR may not accurately reflect actual GFR. Performed By: #### Z INC, TSH, CBCDIF, CMP, FERR #### [facility] [employer] [address] [place], [place] [address] Glucose [Mass/Vol] 83 mg/dL Normal 74-99 [facility] Comment on above: Result Comment: The [place] Diabetes Association (ADA) provides guidance for cutoff values for fasting glucose and random glucose. The ADA defines fasting as no caloric intake for at least 8 hours. Fasting plasma glucose results between 100 to 125 mg/dL indicate increased risk for diabetes (prediabetes). Fasting plasma glucose results greater than or equal to 126 mg/dL meet the criteria for diagnosis of diabetes. In the absence of unequivocal hyperglycemia, results should be confirmed by repeat testing. In a patient with classic symptoms of hyperglycemia or hyperglycemic crisis, random plasma glucose results greater than or equal to 200 mg/dL meet the criteria for diagnosis of diabetes. Reference: Standards of Medical Care in Diabetes 2016, [place] [employer]. Diabetes Care. 2016.39(Suppl 1). Performed By: #### Z INC, TSH, CBCDIF, CMP, FERR #### [facility] [address] [place], [place] [address] Potassium [Moles/Vol] 4.9 mmol/L Normal 3.7-5.1 [facility] Comment on above: Performed By: #### Z INC, TSH, CBCDIF, CMP, FERR #### [facility] [address] [place], [place] [address] Protein [Mass/Vol] 7.2 g/dL Normal 6.3-8.0 [facility] Comment on above: Performed By: #### Z INC, TSH, CBCDIF, CMP, FERR #### [facility] [address] [place], [place] [address] Sodium [Moles/Vol] 139 mmol/L Normal 136-144 [facility] Comment on above: Performed By: #### Z INC, TSH, CBCDIF, CMP, FERR #### [facility] [address] [place], [place] [address] Urea nitrogen [Mass/Vol] 11 mg/dL Normal 7-21 [facility] Comment on above: Performed By: #### Z INC, TSH, CBCDIF, CMP, FERR #### [facility] [address] [place] [address] Ferritinon 06-06-2018 Ferritin [Mass/Vol] 25.1 ng/mL Normal 14.7-205.1 [facility] Comment on above: Performed By: #### Z INC, TSH, CBCDIF, CMP, FERR #### [facility] [address] [place] [id number] PROGRESSon 06-06-2018 PROGRESS HNO ID: [id number] Author: Lyo Restrepo Service: ? Author Type: Physician Type: Progress Notes Filed: 06/06/2018 12:50 PM Note Text: [facility] Department of Dermatology We had the pleasure of seeing your patient. Please see below for our findings, including our assessment and plan near the end of this letter. We hope you find our recommendations helpful. We appreciate the opportunity to consult on the care of your patient. CHIEF COMPLAINT: Patient presents with: Hair Loss HISTORY OF PRESENT ILLNESS: Chloe Cary is a 43 year old female with history of AA who presents for initial evaluation of diffuse hair loss detailed below. Location: scalp Duration: November, flaring most in April Associated symptoms: no itching Modifying factors: previous tx with ILK with improvement. She did leave her boyfriend in November which was a stressor. She did lose about 25 lbs in the last few months due to stress. She was on antidepressants in the past but no longer. Topamax was started about 1.5 years ago - only new medication. No family hx of alopecia. Never started on topical agents. No additional issues today The patient?s personal history of skin cancer is negative. There is not a family history of melanoma. REVIEW OF SYSTEMS: Fourteen systems were reviewed; pertinent findings are described below. All other systems are negative for the problems addressed today. Integument: No other itching, bleeding, or changing skin lesions currently. ALLERGIES: Allergies As of Date: 06/06/2018 Allergen Noted Reaction SEASONAL ALLERGIES 06/06/2018 Other: See Comments reviewed none MEDICATIONS: Outpatient Medications Marked as Taking for the 06/06/18 encounter (Office Visit) with Loy Restrepo: topiramate (TOPAMAX) 25 mg tablet Take 25 mg by mouth twice daily. Disp: Rfl: SUMAtriptan (IMITREX) 100 mg tablet Take 100 mg by mouth as needed. Disp: Rfl: acetaminophen 325 mg-caffeine 40 mg-butalbital 50 mg (FIORICET) per tablet Take 1 tablet by mouth every 4 hours as needed. Disp: Rfl: ibuprofen (MOTRIN) 800 mg tablet Take 800 mg by mouth every 6 hours as needed. Disp: Rfl: RELEVANT PAST MEDICAL HISTORY: No past medical history on file. FAMILY HISTORY: No family history on file. SOCIAL HISTORY: *Above past medical, family and social history reviewed; no changes. PHYSICAL EXAMINATION: Constitutional: Patient is well-appearing and in no acute distress. Conjunctivae and eyelids: Normal, except as noted below. Lips: Normal, except as noted below. Skin: Exam of the face, scalp and hands is performed. All areas are normal except for the following findings. - wig in place, removed for exam - diffuse significant thinning of the scalp. Few thin hairs presents throughout - normal density eyelashes and eyebrows ASSESSMENT and PLAN: Alopecia areata, diffuse pattern, worsening - We discussed the diagnosis, pathogenesis, and expected clinical course of alopecia areata and its variants, including the chronic and waxing/waning nature of this condition. We reviewed reviewed that alopecia areata and its variants are autoimmune diseases and have an unpredictable course. - We reviewed that alopecia areata may be associated with other autoimmune conditions (most commonly thyroid disease) in some patients and families. Labs today - Recommend that the patient consider a trial of at least six months of minoxidil 5% topical solution/foam twice daily. We discussed that she may initially notice hair loss with initiation of this medication. We also recommended that she taper the medication should she choose to discontinue it. - Prescribed fluocinonide (Lidex) 0.05% ointment for the scalp twice daily two weeks on/two weeks off. - The potential adverse effects associated with long-term use of topical corticosteroids, including atrophy, hypopigmentation, striae, and telangiectasia, were reviewed. - Prescribed prednisone taper as follows: 60 mg daily x 7 days, then 50 mg daily x 7 days, then 40 mg daily x 7 days, then 30 mg daily x 7 days, then 20 mg daily x 7 days, then 10 mg daily x 7 days, and then stop. Side effects of prednisone, including hypertension, skin atrophy and impaired wound healing, peripheral edema, nausea/vomiting, increased risk of gastric ulcerations and GI bleeding, increased risk of infection, hyperglycemia and risk of adrenal insufficiency with tapering, cataracts, glaucoma, insomnia, depression, anxiety, osteopenia/osteoporos is and risk of osteonecrosis of the hip, were reviewed with the patient. FOLLOW-UP: A return visit was recommended in 8 weeks. COMPLIANCE DOCUMENTATION: - Medication Reconciliation: An updated list was offered to the patient. This list is available in the electronic medical record. 30 minutes total visit spent face to face with patient. Greater than 50% of the time was spent on counseling and coordination of care, discussing treatment options and recommendations. -- Loy Restrepo MD Normal [facility] TSHon 06-06-2018 TSH Qn 2.550 uU/mL Normal 0.400-5.500 [facility] Comment on above: Result Comment: If t he patient is , TSH reference range varies by gestational period: First Trimester 0.100-2.500 uU/mL Second Trimester 0.200-3.000 uU/mL Third Trimester 0.300-3.000 uU/mL References: 1. De Cem L, Brenda M, Jose De Jesus EK, et al. Management of Thyroid Dysfunction during and : An Endocrine Society Clinical Practice Guideline. J Clin Endocrinol Metab, 2012:97:6906-5359. 2. Balbir STEVEN. Overview of thyroid disease in . UpToDate. 2016. Accessed on August 16, 2015. Performed By: #### Z INC, TSH, CBCDIF, CMP, FERR #### [facility] [address] [place], [place] [address] Vitamin D 25 Hydroxyon 06-06 Vitamin D 25 Hydroxy 23.1 ng/mL Low 31.0-80.0 [facility] Comment on above: Result Comment: Clas sification of 25 [place] Vitamin D status: Insufficiency/Moderate Deficiency: < or = 30 ng/mL Sufficiency/Optimal Levels: 31 to 80 ng/mL Toxicity: > 100 ng/mL Test performed by chemiluminescent immunoassay. Performed By: #### V ITD #### [facility] [address] [place] [id number] [place] 06-06-2018 Zinc 78 ug/dL Normal 55-150 [facility] Comment on above: Result Comment: This test was developed and its performance characteristics determined by [facility]'s [facility] [place] ([facility] It has not been cleared or approved by the FDA. -[facility] is regulated under CLIA as qualified to perform high-complexity testing. This test is used for clinical purposes. It should not be regarded as investigational or for research. Performed By: #### Z INC, TSH, CBCDIF, CMP, FERR #### [facility] [address] [place], [place] [address] Vital Signs Date Time Vital Sign Value Performing Clinician Facility 03-06-2022 10:15-0500 Body height 170.18 cm Chelsea Toopherjose rafael Other [employer] Other 02-05-2022 16:05-0500 Diastolic blood pressure 76 mm[Hg] MD Brennon Chase Work Phone: [facility] 02-05-2022 16:05-0500 Heart rate 71 /min MD Brennon Chase Work Phone: [facility] 02-05-2022 16:05-0500 Respiratory rate 16 /min MD Brennon Chase Work Phone: [facility] 02-05-2022 16:05-0500 SaO2% (BldA) [Mass fraction] 97 % MD Brennon Chase Work Phone: [facility] 02-05-2022 16:05-0500 Systolic blood pressure 115 mm[Hg] MD Brennon Chase Work Phone: [facility] 02-05-2022 12:20-0500 Body height 170.18 cm MD Brennon Chase Work Phone: [facility] 02-05-2022 12:20-0500 Body mass index (BMI) [Ratio] 22.4 kg/m2 MD Brennon Chase Work Phone: [facility] 02-05-2022 12:20-0500 Body weight 64.86 kg MD Brennon Chase Work Phone: [facility] 02-05-2022 11:44-0500 Body temperature 97.9 [degF] MD Brennon Chase Work Phone: [facility] Encounters Encounter Date Encounter Type Care Provider Facility Start: 11-26-2023 End: 11-26-2023 ambulatory SANTHOSH NADERER Not Available Start: 11-16-2023 End: 11-16-2023 ambulatory SANTHOSH NADERER Not Available Start: 11-11-2023 End: 11-11-2023 ambulatory ROCKY MOONEY Not Available Start: 09-20-2023 End: 09-20-2023 ambulatory GOPI A VISCI Not Available Start: 09-06-2023 End: 09-06-2023 ambulatory AARON Serna FELTER Not Available Start: 05-20-2023 End: 05-20-2023 ambulatory SANTHOSH NADERER Not Available Start: 03-10-2023 End: 03-10-2023 ambulatory GOPI A VISCI Not Available Start: 03-10-2023 End: 03-10-2023 ambulatory GOPI A VISCI Not Available Start: 06-17-2022 End: 06-17-2022 ambulatory Chelsea Paula Other [employer] Other Start: 06-17-2022 Office outpatient vi sit 15 minutes Chelsea Paula [facility] Start: 05-20-2022 End: 05-20-2022 ambulatory Chelsea Paula Other [employer] Other Start: 05-20-2022 Office outpatient vi sit 15 minutes Chelsea Paula [facility] Start: 04-22-2022 End: 04-23-2022 ambulatory CHELSEA R PAULINO [facility] Start: 04-22-2022 End: 04-22-2022 Subsequent [facility] Comment on above: Arrived Start: 04-15-2022 End: 04-16-2022 ambulatory CHELSEA R PAULINO [facility] Start: 04-15-2022 End: 04-15-2022 Subsequent [facility] visit [facility] Comment on above: Arrived Start: 04-13-2022 End: 04-14-2022 ambulatory CHELSEA Katelyn [facility] Start: 04-13-2022 End: 04-13-2022 Subsequent hospital visit by physician Alaina AGUILERA[facility] Comment on above: Arrived Start: 04-10-2022 End: 04-11-2022 ambulatory CHELSEA R PAULINO [facility] Start: 04-10-2022 End: 04-10-2022 Subsequent hospital visit by [facility] Comment on above: Arrived Start: 04-08-2022 End: 04-09-2022 ambulatory CHELSEA R PAULINO [facility] Start: 04-08-2022 End: 04-08-2022 Subsequent hospital visit by physician Alaina AGUILERA[facility] Comment on above: Arrived Start: 04-03-2022 End: 04-03-2022 ambulatory Chelsea Paula Other [employer] Other Start: 04-03-2022 Postop follow up vis it related to original px Chelsea Paula [facility] Start: 04-01-2022 End: 04-02-2022 ambulatory CHELSEA Magaña [facility] Start: 04-01-2022 End: 04-01-2022 Subsequent hospital visit by physician Alaina Stanford OTR[facility] Comment on above: Arrived Start: 03-30-2022 End: 03-31-2022 [facility]ulatory [facility] Start: 03-30-2022 End: 03-30-2022 Subsequent hospital visit by physician Alaina Stanford [facility] Comment on above: Arrived Start: 03-27-2022 End: 03-28-2022 ambulatory [facility] Start: 03-23-2022 End: 03-24-2022 ambulatory [facility] Start: 03-23-2022 End: 03-23-2022 Subsequent hospital visit by physician Alaina Stanford OTR/Ezio [facility] Comment on above: Arrived Start: 03-20-2022 End: 03-21-2022 ambulatory [facility] Start: 03-20-2022 End: 03-20-2022 Subsequent hospital visit by physician Alaina Stanford OTR[facility]zio [facility] Comment on above: Arrived Start: 03-16-2022 End: 03-17-2022 ambulatory [facility] Start: 03-16-2022 End: 03-16-2022 Subsequent hospital visit by physician [facility] Comment on above: Arrived Start: 03-13-2022 End: 03-14-2022 ambulatory [facility] Start: 03-13-2022 End: 03-13-2022 Subsequent hospital visit by physician Alaina Stanford OTR/Ezio [facility] Comment on above: Arrived Start: 03-09-2022 End: 03-10-2022 ambulatory [facility]HELSEA [facility] Start: 03-06-2022 End: 03-07-2022 ambulatory CHELSEA PAULA [facility] Eddie Prylos Other Start: 03-06-2022 Postop follow up vis it related to original px Chelsea Paula [facility] Start: 03-06-2022 End: 03-06-2022 Subsequent hospital visit by physician Alaina Stanford OTR/Ezio [facility] Comment on above: Arrived Start: 03-04-2022 End: 03-05-2022 ambulatory CHELSEA [facility] Start: 03-04-2022 End: 03-04-2022 Subsequent hospital visit by physician Alaina Stanford OTR[facility]io [facility] Comment on above: Arrived Start: 02-27-2022 End: 02-28-2022 ambulatory CHELSEA [facility] Start: 02-27-2022 End: 02-27-2022 Subsequent hospital visit by physician Alaina Stanford OTR/Ezio [facility] Comment on above: Arrived Start: 02-25-2022 End: 02-26-2022 ambulatory CHELSEA Mag[facility] Start: 02-25-2022 End: 02-25-2022 Subsequent hospital visit by physician Alaina Stanford OTR/[facility]zio [facility] Comment on above: Arrived Start: 02-17-2022 End: 02-18-2022 ambulatory CHELSEA Mag[facility] Start: 02-17-2022 End: 02-17-2022 Subsequent hospital visit by physician Alaina Stanford OTR/Ezio [facility] Comment on above: Arrived Start: 02-13-2022 End: 02-13-2022 carl Paula Other [employer] Other Start: 02-13-2022 Postop follow up vis it related to original px Chelsea Paula [facility] Start: 02-05-2022 End: 02-05-2022 ambulatory Santhosh Hull Facility:[facility] Start: 02-05-2022 End: 02-05-2022 Admission to same day surgery center MD Brennon Chase Work Phone: [facility] [place] Start: 02-05-2022 End: 02-05-2022 ambulatory MD Brennon Chase Work Phone: [facility] Work Phone: Start: 02-04-2022 End: 02-04-2022 ambulatory Chelsea Paula Facility:[facility] Start: 02-04-2022 End: 02-04-2022 ambulatory MD Brennon Chase Work Phone: [facility] Work Phone: Start: 02-04-2022 End: 02-04-2022 Patient encounter procedure MD Brennon Chase Work Phone: [facility] Start: 01-31-2022 End: 01-31-2022 ambulatory DIONI BACON Facility:[facility] Start: 10-04-2021 Encounter for genera l adult medical examination without abnormal findings DR SANTHOSH HULL [facility] Start: 09-30-2021 End: 10-01-[address] SANTHOSH HULL Facility:[facility] Start: 09-30-2021 End: 10-01-2021 Encounter for general adult medical examination without abnormal findings DR SANTHOSH HULL Facility:[facility] Procedures Date Procedure Procedure Detail Performing Clinician Start: 02-05-2022 Repair of tendon MD Melinda Chase Work Phone: Start: 02-04-2022 Plain X-ray of left hand MD Brennon Chase Work Phone: Plan of Treatment Date Care Activity Detail Author Start: 04-28-2031 DTaP/Tdap/Td vaccine (2 - Td or Tdap) DTaP/Tdap/Td vaccine (2 - Td or Tdap) [facility] Start: 04-22-2022 End: 04-22-2022 Patient encounter procedure 04/22/2022 Appointment Occupational Therapy Leanne Garg [facility]TA [facility] Start: 04-15-2022 End: 04-15-2022 Patient encounter procedure 04/15/2022 Appointment Occupational Therapy Leanne Grag [facility] Start: 04-13-2022 End: 04-13-2022 Patient encounter procedure 04/13/2022 Appointment Occupational Therapy Alaina Stanford OTR/Ezio [facility] Start: 04-10-2022 End: 04-10-2022 Patient encounter procedure 04/10/2022 Appointment Occupational Therapy Leanne Garg [facility] Start: 04-08-2022 End: 04-08-2022 Patient encounter procedure 04/08/2022 Appointment Occupational Therapy Alaina Stanford OTR/Ezio [facility] Start: 04-06-2022 End: 04-06-2022 Patient encounter procedure 04/06/2022 Appointment Occupational Therapy Alaina Stanford OTR/Ezio [facility] Start: 04-01-2022 End: 04-01-2022 Patient encounter procedure 04/01/2022 Appointment Occupational Therapy Alaina Stanford OTR/Ezio [facility] Start: 03-27-2022 End: 03-27-2022 Patient encounter procedure 03/27/2022 Appointment Occupational Therapy Alaina Stanford [facility] Start: 03-23-2022 End: 03-23-2022 Patient encounter procedure 03/23/2022 Appointment Occupational Therapy Alaina Stanford OTR/Ezio [facility] Start: 03-20-2022 End: 03-20-2022 Patient encounter procedure 03/20/2022 Appointment Occupational Therapy Alaina Stanford OTR/Ezio [facility] Start: 03-16-2022 End: 03-16-2022 [facility] Start: 03-13-2022 End: 03-13-2022 Patient encounter procedure 03/13/2022 Appointment Occupational Alaina De La Cruz [facility]TR[facility] Start: 03-09-2022 End: 03-09-2022 Patient encounter procedure 03/09/2022 Appointment Occupational Alaina De La Cruz OTR/Ezio [facility] Start: 03-06-2022 End: 03-06-2022 Patient encounter procedure 03/06/2022 Appointment Occupational Therapy Alaina Stanford OTR/Ezio [facility] Start: 03-04-2022 End: 03-04-2022 Patient encounter procedure 03/04/2022 Appointment Occupational Therapy Alaina Stanford OTR/L [facility] Start: 02-27-2022 End: 02-27-2022 Patient encounter procedure 02/27/2022 Appointment Occupational Therapy Alaina Stanford OTR[facility]Ezio [facility] Start: 02-25-2022 End: 02-25-2022 Patient encounter procedure 02/25/2022 Appointment Occupational Therapy Alaina Stanford OTR/Ezio [facility] Start: 02-05-2022 [facility] Start: 02-05-2022 [facility] Start: 2022 Screening for malignant neoplasm of colon [facility] Start: 09-29-2021 Influenza vaccination Flu vaccine (#1) [facility] Start: 2017 Lipid panel Lipids [facility] Start: 2007 Screening for malignant neoplasm of cervix [facility] Start: 1998 Screening for malignant neoplasm of cervix Pap smear [facility] Start: 1995 Hepatitis C screening Hepatitis C screen [facility] Start: 01-25-1992 HIV screening HIV screen [facility] Start: 1989 Depression Screen Depression Screen [facility] Start: 1977 COVID-19 Vaccine (#1) COVID-19 Vaccine (#1) [facility] Patient referral [facility] Work Phone: Payers Date Payer Category Payer Unknown [id number] 2022 Self-pay [id number] 1975 Unknown [id number] 2.16.84 0.1.916092.3.579.2.593 1977 Unknown [id number] 2.16.84 0.1.531907.3.579.2.593 1977 Unknown [id number] 2.16.8 40.1.775494.3.579.2.173 1977 Unknown [id number] 2.16.8 40.1.232041.3.579.2.173 1977 Unknown [id number] 2.16.8 40.1.126999.3.579.2.173 1977 Unknown [id number] 2.16.8 40.1.184827.3.579.2.173 1977 Unknown [id number] 2.16.8 40.1.285966.3.579.2.173 1977 Unknown [id number] 2.16.8 40.1.885602.3.579.2.173 1977 Unknown [id number] 2.16.8 40.1.863938.3.579.2.173 1977 Unknown [id number] 2.16.8 40.1.356798.3.579.2.173 1977 Unknown [id number] 2.16.8 40.1.862051.3.579.2.173 1977 Unknown [id number] 2.16.8 40.1.307955.3.579.2.173 1977 Unknown [id number] 2.16.8 40.1.438001.3.579.2.173 1977 Unknown [id number] 2.16.8 40.1.750485.3.579.2.173 1977 Unknown [id number] 2.16.8 40.1.150314.3.579.2.173 1977 Unknown [id number] 2.16.8 40.1.900288.3.579.2.173 1977 Unknown [id number] 2.16.8 40.1.224546.3.579.2.173 1977 Unknown [id number] 2.16.8 40.1.083570.3.579.2.173 1977 Unknown [id number] 2.16.8 40.1.991224.3.579.2.173 1977 Unknown [id number] 2.16.8 40.1.457235.3.579.2.173 1977 Unknown [id number] 2.16.84 0.1.151890.3.579.2.1259 1977 Unknown [id number] 2.16.84 0.1.779608.3.579.2.1259 1977 Unknown [id number] 2.16.84 0.1.492459.3.579.2.1259 1977 Unknown [id number] 2.16.84 0.1.977254.3.579.2.1259 1977 Unknown [id number] 2.16.84 0.1.286317.3.579.2.1259 1977 Unknown [id number] 2.16.84 0.1.921410.3.579.2.1259 1977 Unknown [id number] 2.16.84 0.1.836624.3.579.2.1259 1977 Unknown [id number] 2.16.84 0.1.634100.3.579.2.1259 1977 Unknown [id number] 2.16.84 0.1.056726.3.579.2.1259 1959 Unknown [id number] Unknown [id number] 2.16.8 40.1.776705.3.579.2.531 Unknown [id number] 2.16.8 40.1.811087.3.579.2.531 Unknown [id number] 2.16 .840.1.189778.19 Social History Date Type Detail Facility Tobacco smoking status LAIS Unknown if ever smoked [facility] Work Phone: Start: 1975 Sex Assigned At Female F [facility] Tobacco smoking status LAIS Tobacco smoking consumption unknown [facility] [employer] Phone: Start: 1975 Sex Assigned At Not on file [facility] [employer] Phone: Sex Assigned At Sex Assigned At [facility] [employer] Other Goals Date Patient Goal Desired Activity /State Clinical Notes 02-13-2022 to 06-17-2022 Note Date & Type Note Facility 04-19-2023 Evaluation note Encounter Date Diagnosis Assessment Notes May, Other specified postprocedural states (ICD-10 - Z98.890) May, Laceration of extensor muscle, fascia and tendon of left index finger at wrist and hand level, subsequent encounter (ICD-10 - S66.321D) Patient instructed on stretching exercises. [employer] Other 03-22-2023 Evaluation note* Encounter Date Diagnosis Assessment Notes Treatment Notes Treatment Clinical Notes Apr, Laceration of extensor muscle, fascia and tendon of left index finger at wrist and hand level, initial encounter (ICD-10 - S66.321A) Discussed use of oral steoird vs cortisone injection. Continue daily stretching and scar massage. Patient would like to try cortisone injection today. Left index MCP scar injected iwth cortisone under sterile technique, patient tolerated well Apr, Other specified postprocedural states (ICD-10 - Z98.890) [employer] Other 02-13-2023 History of Present illness Narrative* ALE Barbour/Ezio - 04/13/2022 2:45 PM EST [facility] DAILY TREATMENT NOTE Date: 04/13/2022 Patient s Name: Chloe Cary Date of : 1975 (47 y.o.) Gender: female [facility] #: [id number] Medical Diagnosis: L IF MCP extensor tendon repair Referring Physician: Chelsea Paula MD INSURANCE OT Insurance Information: [employer] Total # of Visits Approved: 20 Total # of Visits to Date: 16 PAIN [x]No []Yes Location: Pain Rating (0-10 pain scale): Pain Description: SUBJECTIVE Patient states that she really needs to return to work. Flow Sheet Exercise / Manual treatment Weight/ Level Reps/Time Comments AROM x x LIF to improve ROM AAROM L thumb, IF (DIP and PIP only) and LF to improve ROM Tenodesis To facilitate movement Scar massage x x LIF dorsal MCP with use of instrument for scar tissue management PROM x x L thumb, IF and LF to improve ROM in hand manip coins in hand manip and slide to index/thumb to simulate work task. 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 Patient tolerated well c skin intact pre and post treatment. 8 minutes Ultrasound: .8__ W/cm2 x __8_ mins Duty factor: _x_100% __50% __20% __10% Head size: MHz: __1mHz __2 mHz _x_3mHz Location: L dorsal MCP of IF to facilitate healing of incision. Patient tolerated well c skin intact pre and post treatment. 10 minutes Hot Pack: L hand for pain and stiffness. Combined c paraffin. Patient tolerated well c skin intact pre and post treatment. 10 minutes Paraffin:L hand for pain and stiffness. Combined c HP. Patient tolerated well c skin intact pre and post treatment. Cold Pack: Dry Needling: ___ needle to superficial radial, deep radial and lataeral antebrachial cutaneous athomeostatic neuro- trigger points to... ___No manipulation/static ___Basic Manipulation ___Pistoning Manipulation ___Needle Rotation ___Tenting UPDATED GOALS Time Frame for Nursing Home Goals : 6 weeks Nursing Home Goal 1: Patient to state <20% impairment throughout daily tasks, as measured by the DASH. Continue []Met [x]Partially met []Not met [facility] Goal 2: Patient to demonstrate decreased edema MCP's to to 16.5 cm. MET - cont to monitor[x]Met []Partially met []Not met [facility] Goal 3: Patient to improve L floor refinisher to >50#, and pinches >/=8# to improve strength for I/ADL Continue []Met []Partially met [x]Not met Time Frame for Short Term Goals: 4 weeks Short Term Goal 1: Patient to be educated on HEP as protocol allows to improve functional use of L hand post tendon laceration. Met - Update as patient progresses. Patient compliant c HEP. [x]Met []Partially met []Not met Short Term Goal 2: Patient to improve WINTER LIF to >250 to improve functional use of L hand. Continue MCP: 0-83 PIP: 0-105 DIP: 0-46 WINTER: 232 []Met [x]Partially met []Not met ADDITIONAL COMMENTS EDUCATION New Education provided to patient/family/caregiver: []Yes: [x]No (Continued review of prior education) If yes Education Provided: Method of Education: [x]Discussion []Demonstration [] Written []Other Evaluation of Patient s Response to Education: [x]Patient and or caregiver verbalized understanding []Patient and or Caregiver Demonstrated without assistance []Patient and or Caregiver Demonstrated with assistance []Needs additional instruction to demonstrate understanding of education ASSESSMENT Patient tolerated today s treatment session: [x] Good [] Fair [] Poor Limitations/difficulties with treatment session due to: []Pain []Fatigue []Other medical complications []Other Goal Assessment: [] No Change [x]Improved Therapists observations or comments: improved WINTER RIF Minutes Tracking: Time In: 1445 Time Out: 1530 Minutes: 45 Timed Code Treatment Minutes: 43 Minutes PLAN [x]Continue with current plan of care []Medical Hold []I Hold per patient request [] Change Treatment plan: [] Insurance hold __ Other Electronically signed by DURAN Barbour [facility] 04/13/2022 4:03 PM documented in this encounterBON [facility] Work Phone: 1(248) 507-751002-10-2023 History of Present illness Narrative* NEHAL Espinoza - 04/10/2022 9:00 AM EST Occupational Therapy [facility] DAILY TREATMENT NOTE Date: 04/10/2022 Patient s Name: Chloe Cary Date of : 1975 (47 y.o.) Gender: female [facility] #: [id number] Medical Diagnosis: L IF MCP extensor tendon repair Referring Physician: Chelsea Paula MD INSURANCE OT Insurance Information: [employer] Total # of Visits Approved: 20 Total # of Visits to Date: 15 PAIN []No [x]Yes Location: LIF MCP Pain Rating (0-10 pain scale): Min Pain Description: SUBJECTIVE Pt reports difficulty dealing with insurance and return to work paperwork. Flow Sheet Exercise / Manual treatment Weight/ Level Reps/Time Comments AROM LIF at PIP and DIP to improve ROM MCP flexion with wrist in extension AAROM L thumb, IF (DIP and PIP only) and LF to improve ROM Tenodesis To facilitate movement Scar massage x x LIF dorsal MCP with use of instrument for scar tissue management PROM x x L thumb, IF and LF to improve ROM in hand manip x x coins in hand manip and slide to index/thumb to simulate work task. 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 Patient tolerated well c skin intact pre and post treatment. 8 minutes Ultrasound: .8__ W/cm2 x __8_ mins Duty factor: _x_100% __50% __20% __10% Head size: MHz: __1mHz __2 mHz _x_3mHz Location: L dorsal MCP of IF to facilitate healing of incision. Patient tolerated well c skin intact pre and post treatment. 10 minutes Hot Pack: L hand for pain and stiffness. Combined c paraffin. Patient tolerated well c skin intact pre and post treatment. 10 minutes Paraffin:L hand for pain and stiffness. Combined c HP. Patient tolerated well c skin intact pre and post treatment. Cold Pack: Dry Needling: ___ needle to superficial radial, deep radial and lataeral antebrachial cutaneous athomeostatic neuro- trigger points to... ___No manipulation/static ___Basic Manipulation ___Pistoning Manipulation ___Needle Rotation ___Tenting GOALS Time Frame for Nursing Home Goals : 6 weeks [facility] Goal 1: Patient to state <20% impairment throughout daily tasks, as measured by the DASH. MET 6.03% [x]Met []Partially met []Not met [facility] Goal 2: Patient to demonstrate decreased edema MCP's to to 16.5 cm. MET [x]Met []Partially met []Not met Nursing Home Goal 3: Patient to improve WINTER LIF and LLF to >250 to improve functional use of L hand. Continue MET LLF LIF 04/10/22 DIP 0-52 PIP 0-104 MCP 0-71 WINTER- 227 []Met [x]Partially met []Not met Time Frame for Short Term Goals: 4 weeks Short Term Goal 1: Patient to be educated on HEP as protocol allows to improve functional use of L hand post tendon laceration. Met - Update as patient progresses. Patient compliant c HEP. [x]Met []Partially met []Not met Short Term Goal 2: Patient to demonstrate WINTER LIF to >150. Met [x]Met []Partially met []Not met Short Term Goal 3: Patient to demonstrate improved PAB of L thumb to 13.0 cm. Met [x]Met []Partially met []Not met ADDITIONAL COMMENTS Add goal for floor refinisher and pinch at [facility] 03/31/22 EDUCATION New Education provided to patient/family/caregiver: []Yes: [x]No (Continued review of prior education) If yes Education Provided: Method of Education: [x]Discussion []Demonstration [] Written []Other Evaluation of Patient s Response to Education: []Patient and or caregiver verbalized understanding []Patient and or Caregiver Demonstrated without assistance []Patient and or Caregiver Demonstrated with assistance []Needs additional instruction to demonstrate understanding of education ASSESSMENT Patient tolerated today s treatment session: [x] Good [] Fair [] Poor Limitations/difficulties with treatment session due to: []Pain []Fatigue []Other medical complications []Other Goal Assessment: [] No Change [x]Improved Therapists observations or comments: P1 is still swollen Minutes Tracking: In: 9:00a OUT: 9:44a Total tx time: 44 min PLAN [x]Continue with current plan of care []Medical Hold []I Hold per patient request [] Change Treatment plan: [] Insurance hold __ Other Electronically signed by NEHAL Espinoza, 04/10/2022 9:03 AM documented in this encounterBON [facility] [employer] Work Phone: 1(339) 578-605402-03-2023 Evaluation note* Encounter Date Diagnosis Assessment Notes Treatment Notes Treatment Clinical Notes Apr, Laceration of extensor muscle, fascia and tendon of left index finger at wrist and hand level, initial encounter (ICD-10 - S66.321A) Apr, Other specified postprocedural states (ICD-10 - Z98.890) Patient returns 8 weeks post op. She is slowly progressing with therapy. She is unable to make a full fist at this time. Advised to continue with therapy as well as do motion and strengthening exercises at home. Patient seems to be tightening the intrinsic muscles of the left index finger, contributing to her stiffness. Upon exam she has improved on her motion and strength compared to previous visit. Patient may begin normal activity as tolerated without restrictions. She may use anti-inflammatory medication along with ice as needed with scar massage. Patient may stop the use of her splint at this time. Patient voices understanding and states no further questions. Follow up in 4 weeks time. Hand Strength RT 60 lbs LT 45 lbs LT 55 cm MCP, 85 cm PIP, 55 cm DIP, tip to palm 2.5 cm [employer] Other 02-01-2023 History of Present illness Narrative* DURAN Barbour - 04/01/2022 10:00 AM EST [facility] DAILY TREATMENT NOTE Date: 04/01/2022 Patient s Name: Chloe Cary Date of : 1975 (47 y.o.) Gender: female [facility] #: [id number] Medical Diagnosis: L IF MCP extensor tendon repair Referring Physician: Chelsea Paula MD INSURANCE OT Insurance Information: [employer] Total # of Visits Approved: 20 Total # of Visits to Date: 13 PAIN []No [x]Yes Location: LIF Pain Rating (0-10 pain scale): 2-310 Pain Description: SUBJECTIVE F/U appt Wednesday. PN sent Flow Sheet Exercise / Manual treatment Weight/ Level Reps/Time Comments AROM LIF at PIP and DIP to improve ROM MCP flexion with wrist in extension AAROM L thumb, IF (DIP and PIP only) and LF to improve ROM Tenodesis To facilitate movement Scar massage x x LIF dorsal MCP with use of instrument for scar tissue management PROM x x L thumb, IF and LF to improve ROM in hand manip Med beads in hand manip and slide to index/thumb to simulate work task. 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 Patient tolerated well c skin intact pre and post treatment. 8 minutes Ultrasound: _1.2__ W/cm2 x __8_ mins Duty factor: __100% __x50% __20% __10% Head size: MHz: __1mHz __2 mHz _x_3mHz Location: L dorsal MCP of IF to facilitate healing of incision. Patient tolerated well c skin intact pre and post treatment. 10 minutes Hot Pack: L hand for pain and stiffness. Combined c paraffin. Patient tolerated well c skin intact pre and post treatment. 10 minutes Paraffin:L hand for pain and stiffness. Combined c HP. Patient tolerated well c skin intact pre and post treatment. Cold Pack: Dry Needling: ___ needle to superficial radial, deep radial and lataeral antebrachial cutaneous athomeostatic neuro- trigger points to... ___No manipulation/static ___Basic Manipulation ___Pistoning Manipulation ___Needle Rotation ___Tenting GOALS Time Frame for Cap Sizer Goals : 6 weeks Cap Sizer Goal 1: Patient to state <20% impairment throughout daily tasks, as measured by the DASH. Continue []Met [x]Partially met []Not met [facility] Sizer Goal 2: Patient to demonstrate decreased edema MCP's to to 16.5 cm. MET []Met [x]Partially met []Not met Nursing Home Goal 3: Patient to improve WINTER LIF and LLF to >250 to improve functional use of L hand. Continue - Met LF - see below []Met [x]Partially met []Not met Time Frame for Short Term Goals: 4 weeks Short Term Goal 1: Patient to be educated on HEP as protocol allows to improve functional use of L hand post tendon laceration. Met - Update as patient progresses. Patient compliant c HEP. [x]Met []Partially met []Not met Short Term Goal 2: Patient to demonstrate WINTER LIF to >150. Met [x]Met []Partially met []Not met Short Term Goal 3: Patient to demonstrate improved PAB of L thumb to 13.0 cm. Met [x]Met []Partially met []Not met ADDITIONAL COMMENTS Add goal for floor refinisher and pinch at [facility] 03/31/22 [employer]/PINCH STRENGTH (measured in #) RIGHT LEFT [employer] Representative [employer] 60 41 2 pt pinch 1 6 3 pt pinch 16 8 Maldonado/lateral pinch 10 8 EDUCATION New Education provided to patient/family/caregiver: []Yes: [x]No (Continued review of prior education) If yes Education Provided: Method of Education: [x]Discussion []Demonstration [] Written []Other Evaluation of Patient s Response to Education: [x]Patient and or caregiver verbalized understanding []Patient and or Caregiver Demonstrated without assistance []Patient and or Caregiver Demonstrated with assistance []Needs additional instruction to demonstrate understanding of education ASSESSMENT Patient tolerated today s treatment session: [x] Good [] Fair [] Poor Limitations/difficulties with treatment session due to: []Pain []Fatigue []Other medical complications []Other Goal Assessment: [] No Change [x]Improved Minutes Tracking: Time In: 1005 Time Out: 1050 Minutes: 45 Timed Code Treatment Minutes: 43 Minutes PLAN [x]Continue with current plan of care []Medical Hold []I Hold per patient request [] Change Treatment plan: [] Insurance hold __ Other Electronically signed by DURAN Barbour Jose A 04/01/2022 12:56 PM documented in this encounterBON [employer] Work Phone: 1(300) 712-157301-30-2023 History of Present illness Narrative* Alaina Stanford, OTR/L - 03/30/2022 10:00 AM EST [facility] DAILY TREATMENT NOTE Date: 03/30/2022 Patient s Name: Chloe Cary Date of : 1975 (47 y.o.) Gender: female [facility] #: [id number] Medical Diagnosis: L IF MCP extensor tendon repair Referring Physician: Chelsea Paula MD INSURANCE OT Insurance Information: [employer] Total # of Visits Approved: 20 Total # of Visits to Date: 12 PAIN []No [x]Yes Location: LIF, dorsal MCP Pain Rating (0-10 pain scale): 05/08 Pain Description: SUBJECTIVE Patient c no new complaints. Patient has f/u on Wednesday. Plans to return to work Apr.08. Flow Sheet Exercise / Manual treatment Weight/ Level Reps/Time Comments AROM LIF at PIP and DIP to improve ROM MCP flexion with wrist in extension AAROM L thumb, IF (DIP and PIP only) and LF to improve ROM Tenodesis To facilitate movement Scar massage x x LIF dorsal MCP with use of instrument for scar tissue management PROM x x L thumb, IF and LF to improve ROM in hand manip Med beads in hand manip and slide to index/thumb to simulate work task. (Screws) initiated as HEP putty Pinches/floor refinisher to increase strength initiated at HEP Egg red x20 [employer] Representative [employer] and pinch to improve strength Duckbill Yellow egg x20 Intrinsic + and - to improve intrinsic strength Power web yellow x20 Digit flexion and extension to improve strength Flexbar Yellow x20 Twists and bends to improve strength Modality Flow Sheet: START STOP Tx Modality Electrical Stim: NMES with british virgin islander x 10 minutes, single mode at max tolerance for intensity to IF extensors to enhance tendon excursion. Patient tolerated well c skin intact pre and post treatment. Ultrasound: _1.0__ W/cm2 x __8_ mins Duty factor: __100% __x50% __20% __10% Head size: MHz: __1mHz __2 mHz _x_3mHz Location: L dorsal MCP of IF to facilitate healing of incision. Patient tolerated well c skin intact pre and post treatment. 10 minutes Hot Pack: L hand for pain and stiffness. Combined c paraffin. Patient tolerated well c skin intact pre and post treatment. 10 minutes Paraffin:L hand for pain and stiffness. Combined c HP. Patient tolerated well c skin intact pre and post treatment. Cold Pack: Dry Needling: ___ needle to superficial radial, deep radial and lataeral antebrachial cutaneous athomeostatic neuro- trigger points to... ___No manipulation/static ___Basic Manipulation ___Pistoning Manipulation ___Needle Rotation ___Tenting GOALS Time Frame for Nursing Home Goals : 6 weeks Nursing Home Goal 1: Patient to state <20% impairment throughout daily tasks, as measured by the DASH. Continue []Met [x]Partially met []Not met Nursing Home Goal 2: Patient to demonstrate decreased edema MCP's to to 16.5 cm. MET []Met [x]Partially met []Not met [facility] Goal 3: Patient to improve WINTER LIF and LLF to >250 to improve functional use of L hand. Continue - Met LF - see below []Met [x]Partially met []Not met Time Frame for Short Term Goals: 4 weeks Short Term Goal 1: Patient to be educated on HEP as protocol allows to improve functional use of L hand post tendon laceration. Met - Update as patient progresses. Patient compliant c HEP. [x]Met []Partially met []Not met Short Term Goal 2: Patient to demonstrate WINTER LIF to >150. Met [x]Met []Partially met []Not met Short Term Goal 3: Patient to demonstrate improved PAB of L thumb to 13.0 cm. Met [x]Met []Partially met []Not met ADDITIONAL COMMENTS Add goal for floor refinisher and pinch at [facility] 03/31/22 LEFT HAND Index Long MP 0-63 0-90 PIP 6-96 0-101 DIP 0-45 0-67 WINTER 198 258 EDUCATION New Education provided to patient/family/caregiver: [x]Yes: []No (Continued review of prior education) If yes Education Provided: progress towards goals; strap for full flexion of IF Method of Education: [x]Discussion []Demonstration [] Written []Other Evaluation of Patient s Response to Education: [x]Patient and or caregiver verbalized understanding []Patient and or Caregiver Demonstrated without assistance []Patient and or Caregiver Demonstrated with assistance []Needs additional instruction to demonstrate understanding of education ASSESSMENT Patient tolerated today s treatment session: [x] Good [] Fair [] Poor Limitations/difficulties with treatment session due to: []Pain []Fatigue []Other medical complications []Other Goal Assessment: [] No Change [x]Improved Therapists observations or comments: improved WINTER LF Minutes Tracking: Time In: 0902 Time Out: 0950 Minutes: 48 Timed Code Treatment Minutes: 45 Minutes PLAN [x]Continue with current plan of care []Medical Hold []I Hold per patient request [] Change Treatment plan: [] Insurance hold __ Other Electronically signed by DURAN Barbour, T 03/30/2022 11:50 AM documented in this encounterBON [facility]ENTERQuest [employer] Phone: 1(246) 377-637801-20-2023 History of Present illness Narrative* DURAN Barbour - 03/20/2022 10:30 AM EST [facility] DAILY TREATMENT NOTE Date: 03/20/2022 Patient s Name: Chloe Cary Date of : 1975 (47 y.o.) Gender: female [facility] #: [id number] Medical Diagnosis: L IF MCP extensor tendon repair Referring Physician: Chelsea Paula MD INSURANCE OT Insurance Information: [employer] Total # of Visits Approved: 20 Total # of Visits to Date: 9 PAIN [x]No []Yes Location: Pain Rating (0-10 pain scale): Pain Description: SUBJECTIVE Patient with no complaints. States compliance c splint wear. Flow Sheet Exercise / Manual treatment Weight/ Level Reps/Time Comments AROM LIF at PIP and DIP to improve ROM MCP flexion with wrist in extension AAROM L thumb, IF (DIP and PIP only) and LF to improve ROM Tenodesis To facilitate movement Scar massage x x LIF dorsal MCP with use of instrument for scar tissue management PROM x x L thumb, IF and LF to improve ROM in hand manip Med beads in hand manip and slide to index/thumb to simulate work task. 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 Patient tolerated well c skin intact pre and post treatment. 8 minutes Ultrasound: _1.0__ W/cm2 x __8_ mins Duty factor: __100% __x50% __20% __10% Head size: MHz: __1mHz __2 mHz _x_3mHz Location: L dorsal MCP of IF to facilitate healing of incision. Patient tolerated well c skin intact pre and post treatment. 10 minutes Hot Pack: L hand for pain and stiffness. Combined c paraffin. Patient tolerated well c skin intact pre and post treatment. 10 minutes Paraffin:L hand for pain and stiffness. Combined c HP. Patient tolerated well c skin intact pre and post treatment. Cold Pack: Dry Needling: ___ needle to superficial radial, deep radial and lataeral antebrachial cutaneous athomeostatic neuro- trigger points to... ___No manipulation/static ___Basic Manipulation ___Pistoning Manipulation ___Needle Rotation ___Tenting GOALS Time Frame for Cap Sizer Goals : 6 weeks [facility]izer Goal 1: Patient to state <20% impairment throughout daily tasks, as measured by the DASH. Continue []Met [x]Partially met []Not met [facility] Goal 2: Patient to demonstrate decreased edema MCP's to to 16.5 cm. MET []Met [x]Partially met []Not met Nursing Home Goal 3: Patient to improve WINTER LIF and LLF to >250 to improve functional use of L hand. Continue []Met [x]Partially met []Not met Time Frame for Short Term Goals: 4 weeks Short Term Goal 1: Patient to be educated on HEP as protocol allows to improve functional use of L hand post tendon laceration. Met - Update as patient progresses. Patient compliant c HEP. [x]Met []Partially met []Not met Short Term Goal 2: Patient to demonstrate WINTER LIF to >150. Met [x]Met []Partially met []Not met Short Term Goal 3: Patient to demonstrate improved PAB of L thumb to 13.0 cm. Met [x]Met []Partially met []Not met ADDITIONAL COMMENTS EDUCATION New Education provided to patient/family/caregiver: [x]Yes: []No (Continued review of prior education) If yes Education Provided: progression c protocol Method of Education: [x]Discussion []Demonstration [] Written []Other Evaluation of Patient s Response to Education: [x]Patient and or caregiver verbalized understanding []Patient and or Caregiver Demonstrated without assistance []Patient and or Caregiver Demonstrated with assistance []Needs additional instruction to demonstrate understanding of education ASSESSMENT Patient tolerated today s treatment session: [x] Good [] Fair [] Poor Limitations/difficulties with treatment session due to: []Pain []Fatigue []Other medical complications []Other Goal Assessment: [] No Change [x]Improved Minutes Tracking: Time In: 1032 Time Out: 1120 Minutes: 48 Timed Code Treatment Minutes: 45 Minutes PLAN [x]Continue with current plan of care []Medical Hold []I Hold per patient request [] Change Treatment plan: [] Insurance hold __ Other Electronically signed by DURAN Barbour, T 03/20/2022 11:36 AM documented in this encounterBON [facility] [employer] Work Phone: 1(898) 341-504001-13-2023 History of Present illness Narrative* DURAN Barbour - 03/13/2022 8:30 AM EST [facility] DAILY TREATMENT NOTE Date: 03/13/2022 Patient s Name: Chloe Cary Date of : 1975 (47 y.o.) Gender: female [facility] #: [id number] Medical Diagnosis: L IF MCP extensor tendon repair Referring Physician: Chelsea Paula MD INSURANCE OT Insurance Information: [employer] Total # of Visits Approved: 20 Total # of Visits to Date: 7 PAIN [x]No []Yes Location: Pain Rating (0-10 pain scale): Pain Description: SUBJECTIVE Patient reports misplacement of silicone. Replacement given. Flow Sheet Exercise / Manual treatment Weight/ Level Reps/Time Comments AROM x x10 LIF at PIP and DIP to improve ROM MCP flexion with wrist in extension AAROM x x10 L thumb, IF (DIP and PIP only) and LF to improve ROM Tenodesis To facilitate movement Scar massage x x LIF dorsal MCP with use of instrument for scar tissue management PROM x x L thumb, IF and LF to improve ROM Modality Flow Sheet: START STOP Tx Modality Electrical Stim: NMES with british virgin islander x 10 minutes, single mode at max tolerance for intensity to IF extensors to enhance tendon excursion. Patient tolerated well c skin intact pre and post treatment. 8 minutes Ultrasound: _1.0__ W/cm2 x __8_ mins Duty factor: __100% __x50% __20% __10% Head size: MHz: __1mHz __2 mHz _x_3mHz Location: L dorsal MCP of IF to facilitate healing of incision. Patient tolerated well c skin intact pre and post treatment. 10 minutes Hot Pack: L hand for pain and stiffness. Combined c paraffin. Patient tolerated well c skin intact pre and post treatment. 10 minutes Paraffin:L hand for pain and stiffness. Combined c HP. Patient tolerated well c skin intact pre and post treatment. Cold Pack: Dry Needling: ___ needle to superficial radial, deep radial and lataeral antebrachial cutaneous athomeostatic neuro- trigger points to... ___No manipulation/static ___Basic Manipulation ___Pistoning Manipulation ___Needle Rotation ___Tenting GOALS Time Frame for Nursing Home Goals : 6 weeks Nursing Home Goal 1: Patient to state <20% impairment throughout daily tasks, as measured by the DASH. Continue []Met [x]Partially met []Not met Nursing Home Goal 2: Patient to demonstrate decreased edema MCP's to to 16.5 cm. Continue []Met [x]Partially met []Not met Nursing Home Goal 3: Patient to improve WINTER LIF and LLF to >250 to improve functional use of L hand. Continue []Met [x]Partially met []Not met Time Frame for Short Term Goals: 4 weeks Short Term Goal 1: Patient to be educated on HEP as protocol allows to improve functional use of L hand post tendon laceration. Met - Update as patient progresses. Patient compliant c HEP. [x]Met []Partially met []Not met Short Term Goal 2: Patient to demonstrate WINTER LIF to >150. Met [x]Met []Partially met []Not met Short Term Goal 3: Patient to demonstrate improved PAB of L thumb to 13.0 cm. Met [x]Met []Partially met []Not met ADDITIONAL COMMENTS EDUCATION New Education provided to patient/family/caregiver: []Yes: [x]No (Continued review of prior education) If yes Education Provided: Method of Education: [x]Discussion []Demonstration [] Written []Other Evaluation of Patient s Response to Education: [x]Patient and or caregiver verbalized understanding []Patient and or Caregiver Demonstrated without assistance []Patient and or Caregiver Demonstrated with assistance []Needs additional instruction to demonstrate understanding of education ASSESSMENT Patient tolerated today s treatment session: [x] Good [] Fair [] Poor Limitations/difficulties with treatment session due to: []Pain []Fatigue []Other medical complications []Other Goal Assessment: [] No Change [x]Improved Minutes Tracking: Time In: 804 Time Out: 845 Minutes: 41 Timed Code Treatment Minutes: 39 Minutes PLAN [x]Continue with current plan of care []Medical Hold []I Hold per patient request [] Change Treatment plan: [] Insurance hold __ Other Electronically signed by DURAN Barbour, [facility] 03/13/2022 3:09 PM documented in this encounterBON KERN VALLEYMakieLab Work Phone: [phone]) 627-423201-06-2023 Evaluation note* Encounter Date Diagnosis Assessment Notes Treatment Notes Treatment Clinical Notes Mar, Laceration of extensor muscle, fascia and tendon of left index finger at wrist and hand level, initial encounter (ICD-10 - S66.321A) Patient will continue to work on motion. She may use the silicone scar sheets. Continue use of the brace while spleeping. Come out of brace as much as wanted while at home. Mar, Other specified postprocedural states (ICD-10 - Z98.890) [employer] Other 01-06-2023 History of Present illness Narrative* Alaina Stanford, OTR/L - 03/06/2022 12:15 PM EST [facility] DAILY TREATMENT NOTE Date: 03/06/2022 Patient s Name: Chloe Cary Date of : 1975 (47 y.o.) Gender: female [facility] #: [id number] Medical Diagnosis: L IF MCP extensor tendon repair Referring Physician: Chelsea Paula MD INSURANCE OT Insurance Information: [employer] Total # of Visits Approved: 20 Total # of Visits to Date: 5 PAIN []No []Yes Location: Pain Rating (0-10 pain scale): Pain Description: SUBJECTIVE Patient stated that her f/u with ortho went well. No concerns at this time. Next f/u on 04/03/22. Flow Sheet Exercise / Manual treatment Weight/ Level Reps/Time Comments AROM x x10 LIF at PIP and DIP to improve ROM MCP flexion with wrist in extension AAROM x x10 L thumb, IF (DIP and PIP only) and LF to improve ROM Tenodesis x x10 To facilitate movement Scar massage x x LIF dorsal MCP for scar tissue management Modality Flow Sheet: START STOP Tx Modality 10 minutes Electrical Stim: NMES with british virgin islander x 10 minutes, single mode at max tolerance for intensity to IF extensors to enhance tendon excursion. Patient tolerated well c skin intact pre and post treatment. 8 minutes Ultrasound: _1.0__ W/cm2 x __8_ mins Duty factor: __100% __x50% __20% __10% Head size: MHz: __1mHz __2 mHz _x_3mHz Location: L dorsal MCP of IF to facilitate healing of incision. Patient tolerated well c skin intact pre and post treatment. 10 minutes Hot Pack: L hand for pain and stiffness. Combined c paraffin. Patient tolerated well c skin intact pre and post treatment. 10 minutes Paraffin:L hand for pain and stiffness. Combined c HP. Patient tolerated well c skin intact pre and post treatment. Cold Pack: Dry Needling: ___ needle to superficial radial, deep radial and lataeral antebrachial cutaneous athomeostatic neuro- trigger points to... ___No manipulation/static ___Basic Manipulation ___Pistoning Manipulation ___Needle Rotation ___Tenting GOALS Time Frame for Nursing Home Goals : 6 weeks Nursing Home Goal 1: Patient to state <20% impairment throughout daily tasks, as measured by the DASH. Continue []Met [x]Partially met []Not met [facility] Goal 2: Patient to demonstrate decreased edema MCP's to to 16.5 cm. Continue []Met [x]Partially met []Not met Nursing Home Goal 3: Patient to improve WINTER LIF and LLF to >250 to improve functional use of L hand. Continue []Met [x]Partially met []Not met Time Frame for Short Term Goals: 4 weeks Short Term Goal 1: Patient to be educated on HEP as protocol allows to improve functional use of L hand post tendon laceration. Met - Update as patient progresses. Patient compliant c HEP. [x]Met []Partially met []Not met Short Term Goal 2: Patient to demonstrate WINTER LIF to >150. Met [x]Met []Partially met []Not met Short Term Goal 3: Patient to demonstrate improved PAB of L thumb to 13.0 cm. Met [x]Met []Partially met []Not met ADDITIONAL COMMENTS EDUCATION New Education provided to patient/family/caregiver: []Yes: [x]No (Continued review of prior education) If yes Education Provided: Method of Education: [x]Discussion []Demonstration [] Written []Other Evaluation of Patient s Response to Education: [x]Patient and or caregiver verbalized understanding []Patient and or Caregiver Demonstrated without assistance []Patient and or Caregiver Demonstrated with assistance []Needs additional instruction to demonstrate understanding of education ASSESSMENT Patient tolerated today s treatment session: [x] Good [] Fair [] Poor Limitations/difficulties with treatment session due to: []Pain []Fatigue []Other medical complications []Other Goal Assessment: [] No Change [x]Improved Minutes Tracking: Time In: 1215 Time Out: 1308 Minutes: 53 Timed Code Treatment Minutes: 50 Minutes PLAN [x]Continue with current plan of care []Medical Hold []I Hold per patient request [] Change Treatment plan: [] Insurance hold __ Other Electronically signed by DURAN Barbour [facility] 03/06/2022 1:09 PM documented in this encounterBON [facility]AN[facility] CENTERMinds in [employer] [facility] [employer] Work Phone: 1(645) 146-622401-04-2023 History of Present illness Narrative* ALE Barbour/Ezio - 03/04/2022 9:00 AM EST [facility] DAILY TREATMENT NOTE Date: 03/04/2022 Patient s Name: Chloe Cary Date of : 1975 (47 y.o.) Gender: female [facility] #: [id number] Medical Diagnosis: L IF MCP extensor tendon repair Referring Physician: Chelsea Paula MD INSURANCE OT Insurance Information: [employer] Total # of Visits Approved: 20 Total # of Visits to Date: 4 PAIN [x]No []Yes Location: Pain Rating (0-10 pain scale): Pain Description: SUBJECTIVE Patient has f/u c ortho Wednesday. PN sent. Flow Sheet Exercise / Manual treatment Weight/ Level Reps/Time Comments AROM x x10 LIF at PIP and DIP to improve ROM MCP flexion with wrist in extension AAROM x x10 L thumb, IF (DIP and PIP only) and LF to improve ROM Tenodesis x x10 To facilitate movement Modality Flow Sheet: START STOP Tx Modality 10 minutes Electrical Stim: NMES with british virgin islander x 10 minutes, single mode at max tolerance for intensity to IF extensors to enhance tendon excursion. Patient tolerated well c skin intact pre and post treatment. 8 minutes Ultrasound: _1.0__ W/cm2 x __8_ mins Duty factor: __100% __x50% __20% __10% Head size: MHz: __1mHz __2 mHz _x_3mHz Location: L dorsal MCP of IF to facilitate healing of incision. Patient tolerated well c skin intact pre and post treatment. Hot Pack: L hand for pain and stiffness. Combined c paraffin. Patient tolerated well c skin intact pre and post treatment. Paraffin:L hand for pain and stiffness. Combined c HP. Patient tolerated well c skin intact pre andpost treatment. Cold Pack: Dry Needling: ___ needle to superficial radial, deep radial and lataeral antebrachial cutaneous athomeostatic neuro- trigger points to... ___No manipulation/static ___Basic Manipulation ___Pistoning Manipulation ___Needle Rotation ___Tenting GOALS Time Frame for Nursing Home Goals : 6 weeks [facility] Goal 1: Patient to state <20% impairment throughout daily tasks, as measured by the DASH. Continue []Met [x]Partially met []Not met Nursing Home Goal 2: Patient to demonstrate decreased edema MCP's to to 16.5 cm. Continue - 18 cm []Met [x]Partially met []Not met Nursing Home Goal 3: Patient to improve WINTER LIF and LLF to >250 to improve functional use of L hand. Continue - see below []Met [x]Partially met []Not met Time Frame for Short Term Goals: 4 weeks Short Term Goal 1: Patient to be educated on HEP as protocol allows to improve functional use of L hand post tendon laceration. Met - Update as patient progresses. Patient compliant c HEP. [x]Met []Partially met []Not met Short Term Goal 2: Patient to demonstrate WINTER LIF to >150. Met MCP: 0-59 PIP: 5-86 DIP: 0-47 WINTER: 187 [x]Met []Partially met []Not met Short Term Goal 3: Patient to demonstrate improved PAB of L thumb to 13.0 cm. Met - 14.0 cm [x]Met []Partially met []Not met ADDITIONAL COMMENTS LEFT HAND Index Long MP 0-59 0-89 PIP 5-86 0-100 DIP 0-47 0-56 WINTER 187 245 EDUCATION New Education provided to patient/family/caregiver: [x]Yes: []No (Continued review of prior education) If yes Education Provided: progress towards goals Method of Education: [x]Discussion []Demonstration [] Written []Other Evaluation of Patient s Response to Education: [x]Patient and or caregiver verbalized understanding []Patient and or Caregiver Demonstrated without assistance []Patient and or Caregiver Demonstrated with assistance []Needs additional instruction to demonstrate understanding of education ASSESSMENT Patient tolerated today s treatment session: [x] Good [] Fair [] Poor Limitations/difficulties with treatment session due to: []Pain []Fatigue []Other medical complications []Other Goal Assessment: [] No Change [x]Improved Therapists observations or comments: improved ROM at thumb, index and long Minutes Tracking: Time In: 0900 Time Out: 0945 Minutes: 45 Timed Code Treatment Minutes: 43 Minutes PLAN [x]Continue with current plan of care []Medical Hold []I Hold per patient request [] Change Treatment plan: [] Insurance hold __ Other Electronically signed by DURAN Barbour CHT 03/04/2022 9:57 AM documented in [facility] encounterB[facility] [employer] Work Phone: [phone] 457-450912-30-2022 History of Present illness Narrative* DURNA Barbour - 02/27/2022 9:30 AM EST [facility] DAILY TREATMENT NOTE Date: 02/27/2022 Patient s Name: Chloe Cary Date of : 1975 (47 y.o.) Gender: female [facility] #: [id number] Medical Diagnosis: L IF MCP extensor tendon repair Referring Physician: Chelsea Paula MD INSURANCE OT Insurance Information: [employer] Total # of Visits Approved: 20 Total # of Visits to Date: 3 PAIN []No [x]Yes Location: LIF Pain Rating (0-10 pain scale): 4/10 Pain Description: SUBJECTIVE Patient concerned with incision. Slight redness noted, seems to be keeping in moisture. Patient instructed to stop contrast bathes and remove silicone padding added at last visit. No s/s of infection, no drainage noted. Flow Sheet Exercise / Manual treatment Weight/ Level Reps/Time Comments AROM x x10 LIF at PIP and DIP to improve ROM MCP flexion with wrist in extension AAROM x x10 L thumb, IF (DIP and PIP only) and LF to improve ROM Tenodesis x x10 To facilitate movement Modality Flow Sheet: START STOP Tx Modality 10 minutes Electrical Stim: NMES with british virgin islander x 10 minutes, single mode at max tolerance for intensity to IF extensors to enhance tendon excursion. Patient tolerated well c skin intact pre and post treatment. 8 minutes Ultrasound: _.8__ W/cm2 x __8_ mins Duty factor: __100% __x50% __20% __10% Head size: MHz: __1mHz __2 mHz _x_3mHz Location: L dorsal MCP of IF to facilitate healing of incision. Patient tolerated well c skin intact pre and post treatment. Hot Pack: L hand for pain and stiffness. Combined c paraffin. Patient tolerated well c skin intact pre and post treatment. Paraffin:L hand for pain and stiffness. Combined c HP. Patient tolerated well c skin intact pre andpost treatment. Cold Pack: Dry Needling: ___ needle to superficial radial, deep radial and lataeral antebrachial cutaneous athomeostatic neuro- trigger points to... ___No manipulation/static ___Basic Manipulation ___Pistoning Manipulation ___Needle Rotation ___Tenting GOALS Time Frame for Cap Sizer Goals : 6 weeks Nursing Home Goal 1: Patient to state <20% impairment throughout daily tasks, as measured by the DASH. Continue []Met [x]Partially met []Not met Nursing Home Goal 2: Patient to demonstrate decreased edema MCP's to to 16.5 cm. Continue []Met [x]Partially met []Not met Nursing Home Goal 3: Patient to improve WINTER LIF and LLF to >250 to improve functional use of L hand. Continue []Met [x]Partially met []Not met Time Frame for Short Term Goals: 4 weeks Short Term Goal 1: Patient to be educated on HEP as protocol allows to improve functional use of L hand post tendon laceration. Continue Added tenodesis movement and AROM of MCP of IF with wrist in ext []Met [x]Partially met []Not met Short Term Goal 2: Patient to demonstrate WINTER LIF to >150. Continue []Met [x]Partially met []Not met Short Term Goal 3: Patient to demonstrate improved PAB of L thumb to 13.0 cm. Continue []Met [x]Partially met []Not met ADDITIONAL COMMENTS EDUCATION New Education provided to patient/family/caregiver: [x]Yes: []No (Continued review of prior education) If yes Education Provided: Method of Education: [x]Discussion []Demonstration [] Written []Other Evaluation of Patient s Response to Education: [x]Patient and or caregiver verbalized understanding []Patient and or Caregiver Demonstrated without assistance []Patient and or Caregiver Demonstrated with assistance []Needs additional instruction to demonstrate understanding of education ASSESSMENT Patient tolerated today s treatment session: [x] Good [] Fair [] Poor Limitations/difficulties with treatment session due to: []Pain []Fatigue []Other medical complications []Other Goal Assessment: [] No Change [x]Improved Therapists observations or comments: Minutes Tracking: Time In: 930 Time Out: 1015 Minutes: 44 Timed Code Treatment Minutes: 41 Minutes PLAN [x]Continue with current plan of care []Medical Hold []I Hold per patient request [] Change Treatment plan: [] Insurance hold __ Other Electronically signed by DURAN Barbour CHT 02/27/2022 10:44 AM documented in [facility] [employer] Work Phone: [phone] 440-822812-28-2022 History of Present illness Narrative* DURAN Barbour - 02/25/2022 3:15 PM EST [facility] DAILY TREATMENT NOTE Date: 02/25/2022 Patient s Name: Chloe Cary Date of : 1975 (47 y.o.) Gender: female [facility] #: [id number] Medical Diagnosis: L IF MCP extensor tendon repair Referring Physician: Chelsea Paula MD INSURANCE OT Insurance Information: [employer] Total # of Visits Approved: 20 Total # of Visits to Date: 2 PAIN []No [x]Yes Location: LIF Pain Rating (0-10 pain scale): 05/08 Pain Description: SUBJECTIVE Patient states compliance c HEP. Patient c slight redness and puffiness to incision site. No warmness noted. Patient states that it does get irritated in splint. Patient given silicone insert to place between dorsal MCP of IF and splint to address scar tissue and provide increased comfort. Flow Sheet Exercise / Manual treatment Weight/ Level Reps/Time Comments AROM x x10 LIF at PIP and DIP to improve ROM MCP flexion with wrist in extension AAROM x x10 L thumb, IF (DIP and PIP only) and LF to improve ROM Tenodesis x x10 To facilitate movement Modality Flow Sheet: START STOP Tx Modality 10 minutes Electrical Stim: NMES with brit[place] virgin islander x 10 minutes, single mode at max tolerance for intensity to IF extensors to enhance tendon excursion. Patient tolerated well c skin intact pre and post treatment. Ultrasound: ___ W/cm2 x ___ mins Duty factor: __100% __50% __20% __10% Head size: MHz: __1mHz __2 mHz __3mHz Location: 10 minutes Hot Pack: L hand for pain and stiffness. Combined c paraffin. Patient tolerated well c skin intact pre and post treatment. 10 minutes Paraffin:L hand for pain and stiffness. Combined c HP. Patient tolerated well c skin intact pre and post treatment. Cold Pack: Dry Needling: ___ needle to superficial radial, deep radial and lataeral antebrachial cutaneous athomeostatic neuro- trigger points to... ___No manipulation/static ___Basic Manipulation ___Pistoning Manipulation ___Needle Rotation ___Tenting GOALS Time Frame for Nursing Home Goals : 6 weeks [facility] Goal 1: Patient to state <20% impairment throughout daily tasks, as measured by the DASH. Continue []Met [x]Partially met []Not met [facility] Goal 2: Patient to demonstrate decreased edema MCP's to to 16.5 cm. Continue []Met [x]Partially met []Not met Nursing Home Goal 3: Patient to improve WINTER LIF and LLF to >250 to improve functional use of L hand. Continue []Met [x]Partially met []Not met Time Frame for Short Term Goals: 4 weeks Short Term Goal 1: Patient to be educated on HEP as protocol allows to improve functional use of L hand post tendon laceration. Continue Added tenodesis movement and AROM of MCP of IF with wrist in ext []Met [x]Partially met []Not met Short Term Goal 2: Patient to demonstrate WINTER LIF to >150. Continue []Met [x]Partially met []Not met Short Term Goal 3: Patient to demonstrate improved PAB of L thumb to 13.0 cm. Continue []Met [x]Partially met []Not met ADDITIONAL COMMENTS EDUCATION New Education provided to patient/family/caregiver: [x]Yes: []No (Continued review of prior education) If yes Education Provided: educated on tendon excursion and protection (tenodesis and importance ofwrist in ext with MP flexion) a Method of Education: [x]Discussion [x]Demonstration [] Written []Other Evaluation of Patient s Response to Education: [x]Patient and or caregiver verbalized understanding []Patient and or Caregiver Demonstrated without assistance []Patient and or Caregiver Demonstrated with assistance []Needs additional instruction to demonstrate understanding of education ASSESSMENT Patient tolerated today s treatment session: [x] Good [] Fair [] Poor Limitations/difficulties with treatment session due to: []Pain []Fatigue []Other medical complications []Other Goal Assessment: [] No Change [x]Improved Minutes Tracking: Time In: 1517 Time Out: 1601 Minutes: 44 Timed Code Treatment Minutes: 42 Minutes PLAN [x]Continue with current plan of care []Medical Hold []I Hold per patient request [] Change Treatment plan: [] Insurance hold __ Other Electronically signed by DURAN Barbour, [facility] 02/25/2022 4:38 PM documented in this encounterB[facility] Work Phone: [phone] Evaluation note* Encounter Date Diagnosis Assessment Notes Treatment Notes Treatment Clinical Notes Jan, Laceration of extensor muscle, fascia and tendon of left index finger at wrist and hand level, initial encounter (ICD-10 - S66.321A) May begin gentle motion, wear brace while sleeping and with activity. Order given for occupational therapy Jan, Other specified postprocedural states (ICD-10 - Z98.890) [employer] Other Evaluation noteNo assessment information available [facility] Work Phone: History general Narrative - Reported* Type Description Date Medical History left index finger laceration Medical History migraines Surgical History vein surgery Surgical History Left Index finger ex tensor tendon laceration repair dorsal metacarpophalangeal joint [employer] [facility] [employer] Other Hospital Discharge instructions Additional Instructions DR. PAULA'S POST OP INSTRUCTIONS Take prescribed pain medication as directed and as needed to control your post- operative pain. -In addition to the prescribed medication, you may take ibuprofen (Advil, Motrin) or naproxen (Aleve/Naprosyn) to help control pain and decrease swelling. -DO NOT TAKE ibuprofen/Naprosyn/naproxen if you have a history of bleeding ulcer, are taking anticoagulation medication (Coumadin/warfarin, Eliquis, Xarelto, Plavix, Lovenox), if you have had a history of gastric bypass surgery, or if you have a history of kidney disease. Elevate the operative area as much as possible, using at least 2-3 pillows, keeping the hand higher than the elbow. Keep ice at the operative area as much as possible. It takes longer than 20 minutes for the cold to penetrate the bandages, so leave the ice bag or cold pack in place until the ice melts, then it is time to change to a fresh ice bag or cold pack. -Elevation and ice help to lessen the swelling post-operatively which helps to lessen pain so that you will need to take less pain medication, as well as maintaining better range of motion and function of your hand (more swelling, less movement). You may wiggle your fingers, bending, flexing, and move them to decrease stiffness. You may use your hands for light activities of 2-5 lbs. This is lifting your coffee cup, using your silverware, and typing on a computer or tablet. -Do NOT perform strenuous lifting or lift greater than 10 lbs until 4-6 weeks after surgery to minimize exacerbation of pain at the surgery site. You may remove your dressing on the third day after surgery, and get your surgical incision wet in the shower or when washing your hands with soap and water. -Continue to use the TKO Velcro brace to your left hand during activities as well as sleeping in the brace at nighttime. During the day you may come out of the brace for gentle, not resistive, range of motion exercises to the left hand and index finger to decrease stiffness. Do not use her hand for any heavy gripping or resistive activities such as squeezing a squeeze ball -DO NOT soak your incision or submerge it under standing water such as dishwater or bathtub. -DO NOT apply perfumed moisturizers or ointments unless otherwise instructed by your physician. -Washing your incision gently with soap and water on a daily basis, helps to rid your skin of bacteria and decrease the risk of wound infections. -After showering or washing your hands, pat the incision dry, and keep covered with a clean dry gauze bandage. -You may apply Bacitracin, Neosporin, or generic triple antibiotic ointment to incision if you would like Take vitamin C 500 mg by mouth daily to help skin and incision heal Take antibiotics as directed to decrease risk of infection after surgery Please call [facility] at [phone] or [facility] occupational therapy at the [facility] at [phone], or another hand or occupational therapist of your choosing, as soon as possible, to be scheduled to start the postoperative tendon motion rehabilitation programAv[facility] Work Phone: Summary Purpose Family History No Family History Records Found Relationship Condition Age at Onset Recorded Date/T ady father Hypertension Unknown Hemochromatosis Unknown Not Specified Asthma Unknown Diverticulitis Unknown Hypoglycemia Unknown grandparent Type 2 diabetes mellitus Unknown Advance Directives No Advanced Directives Records Found Advance Directive Response Recorded Date/ Time Advance Directives No February 05, 2022 10:51am Chief Complaint and Reason for Visit Chief Complaint Laceration Additional Source Comments INFORMATION SOURCE (unrecogn ized section and content) DATE CREATED AUTHOR 09/18/2018 [facility] DATE CREATED AUTHOR AUTHOR'S ORGANIZ ATION 02/04/2022 [facility] DATE CREATED AUTHOR AUTHOR'S ORGANIZ ATION 03/06/2022 [facility] dical Specialist DATE CREATED AUTHOR AUTHOR'S ORGANIZ ATION 03/09/2022 [facility] DATE CREATED AUTHOR AUTHOR'S ORGANIZ ATION 05/08/2022 [facility] DATE CREATED AUTHOR AUTHOR'S ORGANIZ ATION 11/27/2023 [facility] dical Specialists EPIC Care Teams (unrecognized sec tion and content) Team Status: Inactive Member Role Status Dates Brennon Chase MD Primary Care Provider Active Chelsea Paula MD Attending Provider Active Team Status: Active Member Role Status Dates Brennon Chase MD Primary Care Provider Active Team Status: Inactive Member Role Status Dates Chelsea Paula MD Attending Provider Active Santhosh Hull MD Primary Care Provider Active Team Status: Active Member Role Status Dates Santhosh Hull MD Primary Care Provider Active Goals (unrecognized section and content) Goals may be documented in a n alternate sectionNo InformationNo InformationNo InformationNo InformationNo Information REASON FOR VISIT (unrecogniz ed section and content) Recheck Left HandRecheck Lef t HandRecheck Left HandRecheck Left HandRecheck Left Hand FOR RECORDS PERTAINING TO PATIENTS WHO ARE OR HAVE BEEN ENROLLED IN A CHEMICAL DEPENDENCY/SUBSTANCEABUSE PROGRAM, SOME INFORMATION MAY BE OMITTED. This clinical summary was aggregated from multiple sources. Caution should be exercised in using it in the provision of clinical care. This summary normalizes information from multiple sources, and as a consequence, information in this document may materially change the coding, format and clinical context of patient data. In addition, data may be omitted in some cases. CLINICAL DECISIONS SHOULD BE BASED ON THE PRIMARY CLINICAL RECORDS. [email or web address] [facility] provides no warranty or guarantee of the accuracy or completeness of information in this document.
== END 2023-11-29 11:12 | disposition home or self-care (01) ==
LOC: EC 11:12
PROVIDERS: PCP Family Medicine; Visit Provider Orthopaedic Surgery
DX: M79.644 Pain in right finger(s) (principal); S62.666D Nondisplaced fracture of distal phalanx of right little finger, subsequent encounter for fracture with routine healing
CPT/HCPCS: 73130